=== PATIENT | female | born 1945 | race Caucasian/White ===

== ENCOUNTER 2018-05-11 09:08 | Emergency (ER) | payer MEDICARE ==
[2018-05-11] MEDS ORDERED: PROPARACAINE 0.5% OPHTH DROPS 15 ML BTL LEFT EYE STA (10:09)
[2018-05-11] MEDS ORDERED: TOBRAMYCIN 0.3% OPHTH OINT 3.5 GM TUBE LEFT EYE STA (11:04)
--- NOTE | 2018-05-11 11:05 | ED ---
Eye Problem HPI - General Chief complaint: Eye Problems Stated complaint: eye irritation Time Seen by Provider: 05/11/18 09:44 Source: patient, RN notes reviewed Mode of arrival: ambulatory Limitations: no limitations - History of Present Illness Initial comments: 72-year-old female presents emergency Department chief complaint of left eye irritation. Patient states that she tried to put eyedrops in her eye in the in the dark and states that she accidentally grabbed Lavender essential oil. Patient states she try to rinse her eye right eye feels very irritated. She denies any associated blurred vision. Patient states it's a burning sensation and feels very scratchy. Patient normally has dry eyes. Patient states that she only put in her left eye there was no exposure to her right eye. - Related Data Home Medications Medication Instructions Recorded Confirmed Thera Tears 1 drop BOTH EYES Q4H PRN 05/11/18 05/11/18 Previous Rx's Medication Instructions Recorded Tobra-Dexamet 0.3-0.1% Eye Oin 1 applic LEFT EYE BID #3.5 gm 05/11/18 [Tobradex] Allergies Allergy/AdvReac Type Severity Reaction Status Date / Time codeine Allergy Rash/Hives Verified 05/11/18 09:31 pseudoephedrine Allergy Anaphylaxis Verified 05/11/18 09:31 Review of Systems ROS Statement: Those systems with pertinent positive or pertinent negative responses have been documented in the HPI. ROS Other: All systems not noted in ROS Statement are negative. Past Medical History Past Medical History: Hyperlipidemia Additional Past Medical History / Comment(s): Dry eye, seasonal allergies History of Any Multi-Drug Resistant Organisms: None Reported Past Surgical History: Appendectomy, Section Additional Past Surgical History / Comment(s): Back surgery, power port placed for mary Past Psychological History: No Psychological Hx Reported Smoking Status: Never smoker Past Alcohol Use History: Daily Past Drug Use History: None Reported General Exam Limitations: no limitations General appearance: alert, in no apparent distress Head exam: Present: atraumatic, normocephalic, normal inspection Eye exam: Present: PERRL, EOMI, conjunctival injection (Left, erythema of the inner eyelids noted), other (Flourcesin dye and Wood's lamp were used to evaluate the left eye there is uptake in the 9 o'clock position, patient had full relief of her symptoms with proparacaine). Absent: normal appearance, scleral icterus, periorbital swelling ENT exam: Present: normal exam, normal oropharynx, mucous membranes moist, TM's normal bilaterally, normal external ear exam Neck exam: Present: normal inspection, full ROM. Absent: tenderness, meningismus, lymphadenopathy Respiratory exam: Present: normal lung sounds bilaterally. Absent: respiratory distress, wheezes, rales, rhonchi, stridor Course Vital Signs 05/11/18 09:08 Temperature 97.9 F Pulse Rate 102 H Respiratory 18 Rate Blood Pressure 151/81 O2 Sat by Pulse 98 Oximetry Medical Decision Making - Medical Decision Making 72-year-old female presents for left eye irritation after exposure to essential oil. Patient had Stanislaw lens and 500 mL of fluid were flushed. Patient tolerated well. Patient did have corneal uptake and patient will be discharged on Tobrex eye ointment. Patient will follow-up with ophthalmology. Return parameters were discussed. Disposition Clinical Impression: Corneal abrasion, Chemical exposure of eye Disposition: HOME SELF-CARE Condition: Stable Instructions: Corneal Abrasion (ED), Chemical Eye [place] (ED) Additional Instructions: Please return to the Emergency Department if symptoms worsen or any other concerns. Prescriptions: Tobra-Dexamet 0.3-0.1% Eye Oin [Tobradex] 1 applic LEFT EYE BID #3.5 gm Is patient prescribed a controlled substance at d/c from ED?: No Referrals: Noelle Mckeon MD [STAFF PHYSICIAN] - 1-2 days Time of Disposition: 11:05
[2018-05-11 11:40] VITALS: BP 139/68; PULSE 63; RESP 16; TEMP 98
== END 2018-05-11 11:44 | disposition home or self-care (01) ==
LOC: EC 09:08
DX: S05.02XA Injury of conjunctiva and corneal abrasion without foreign body, left eye, initial encounter (principal); Z77.098 Contact with and (suspected) exposure to other hazardous, chiefly nonmedicinal, chemicals; Z88.5 Allergy status to narcotic agent; Z88.8 Allergy status to other drugs, medicaments and biological substances
CPT/HCPCS: 99283

== ENCOUNTER 2018-08-16 22:41 | Inpatient (IN) | payer MEDICARE ==
[2018-08-16] MEDS ORDERED: SODIUM CHLORIDE 0.9% 1,000 ML IV STA ×2 (23:42)
[2018-08-16] MEDS ORDERED: ONDANSETRON 4 MG/2 ML VIAL IVP STA (23:42)
[2018-08-16] MEDS ORDERED: HYDROmorphone 1 MG/ML 1 ML SYRINGE IVP STA (23:42)
--- NOTE | 2018-08-16 23:59 | ED ---
Abdominal Pain HPI - General Chief Complaint: Abdominal Pain Stated Complaint: rib pain/back pain Time Seen by Provider: 08/16/18 23:20 Source: patient, RN notes reviewed Mode of arrival: ambulatory Limitations: no limitations - History of Present Illness Initial Comments: This is a 73-year-old female history of and history of a bowel obstruction several years ago which was managed nonoperatively who states she had the onset earlier today of abdominal pain she states radiated from her epigastrium around to her back she states she's had nausea states the pain is 8- 1/2/10 severity early prior surgery was a . Pain is sharp mostly again midepigastric and continuous. No dysuria no hematuria no constipation or diarrhea. She states it does feel similar to her prior obstruction. MD Complaint: abdominal pain - Related Data Home Medications Medication Instructions Recorded Confirmed Thera Tears 1 drop BOTH EYES Q4H PRN 05/11/18 08/16/18 Magnesium 200 mg PO DAILY 08/16/18 08/16/18 Naproxen Sodium [Aleve] 440 mg PO Q12HR PRN 08/16/18 08/16/18 Oxymetazoline 0.05% Nasl [place] 2 spray EA NOSTRIL BID 08/16/18 08/16/18 [Afrin 0.05% Nasal [place]] Allergies Allergy/AdvReac Type Severity Reaction Status Date / Time codeine Allergy Rash/Hives Verified 08/16/18 23:20 levofloxacin Allergy Unknown Verified 08/16/18 23:20 pseudoephedrine Allergy Anaphylaxis Verified 08/16/18 23:20 Review of Systems ROS Statement: Those systems with pertinent positive or pertinent negative responses have been documented in the HPI. ROS Other: All systems not noted in ROS Statement are negative. Past Medical History Past Medical History: Cancer, Hyperlipidemia Additional Past Medical History / Comment(s): Dry eye, seasonal allergies, History of Any Multi-Drug Resistant Organisms: None Reported Past Surgical History: Appendectomy, Back Surgery, Section Additional Past Surgical History / Comment(s): Back surgery, power port placed for chemo Past Psychological History: No Psychological Hx Reported Smoking Status: Never smoker Past Alcohol Use History: Daily Past Drug Use History: None Reported General Exam - General Exam Comments Initial Comments: This is a well-developed well-nourished awake alert oriented 3 female Limitations: no limitations General appearance: alert, anxious, in distress Head exam: Present: atraumatic, normocephalic, normal inspection Eye exam: Present: normal appearance, PERRL, EOMI. Absent: scleral icterus, conjunctival injection, periorbital swelling ENT exam: Present: mucous membranes dry Neck exam: Present: normal inspection. Absent: tenderness, meningismus, lymphadenopathy Respiratory exam: Present: normal lung sounds bilaterally. Absent: respiratory distress, wheezes, rales, rhonchi, stridor Cardiovascular Exam: Present: regular rate, normal rhythm, normal heart sounds. Absent: systolic murmur, diastolic murmur, rubs, gallop, clicks GI/Abdominal exam: Present: soft, tenderness (Epigastric and generalized tenderness no guarding rebound masses or bruits), normal bowel sounds. Absent: distended, guarding, rebound, rigid Rectal exam: Present: deferred Extremities exam: Present: normal inspection, full ROM, normal capillary refill. Absent: tenderness, pedal edema, joint swelling, calf tenderness Back exam: Present: normal inspection Neurological exam: Present: alert, oriented X3, CN II-XII intact Psychiatric exam: Present: normal affect, normal mood Skin exam: Present: warm, dry, intact, normal color. Absent: rash Course Vital Signs 08/16/18 22:48 Temperature 97.8 F Pulse Rate 77 Respiratory 18 Rate Blood Pressure 136/67 O2 Sat by Pulse 99 Oximetry - Reevaluation(s) Reevaluation #1: 08/17/18 00:48 Patient is feeling improved. Medical Decision Making - Medical Decision Making I did discuss findings with the patient and family members. Patient will be admitted for IV fluids nasogastric suction CAT scan surgical consultation. - Lab Data Result diagrams: 08/16/18 23:15 08/16/18 23:15 Lab Results 08/16/18 08/16/18 08/16/18 Range/Units 23:15 23:15 23:15 WBC 8.5 (3.8-10.6) k/uL RBC 4.59 (3.80-5.40) m/uL Hgb 14.5 (11.4-16.0) gm/dL Hct 43.3 (34.0-46.0) % MCV 94.4 (80.0-100.0) fL MCH 31.6 (25.0-35.0) pg MCHC 33.5 (31.0-37.0) g/dL RDW 12.9 (11.5-15.5) % Plt Count 241 (150-450) k/uL Neutrophils % 65 % Lymphocytes % 20 % Monocytes % 7 % Eosinophils % 5 % Basophils % 1 % Neutrophils # 5.5 (1.3-7.7) k/uL Lymphocytes # 1.7 (1.0-4.8) k/uL Monocytes # 0.6 (0-1.0) k/uL Eosinophils # 0.5 (0-0.7) k/uL Basophils # 0.1 (0-0.2) k/uL Sodium 140 (137-145) mmol/L Potassium 4.9 (3.5-5.1) mmol/L Chloride 103 (98-107) mmol/L Carbon Dioxide 27 (22-30) mmol/L Anion Gap 10 mmol/L BUN 28 H (7-17) mg/dL Creatinine 0.89 (0.52-1.04) mg/dL Est GFR (CKD-EPI)AfAm 74 (>60 ml/min/1.73 sqM) Est GFR (CKD-EPI)NonAf 65 (>60 ml/min/1.73 sqM) Glucose 107 H (74-99) mg/dL Plasma Lactic Acid Edvin (0.7-2.0) mmol/L Calcium 10.2 (8.4-10.2) mg/dL Total Bilirubin 0.5 (0.2-1.3) mg/dL AST 28 (14-36) U/L ALT 28 (9-52) U/L Alkaline Phosphatase 85 (38-126) U/L Total Creatine Kinase 73 (30-135) U/L CK-MB (CK-2) 1.9 (0.0-2.4) ng/mL CK-MB (CK-2) Rel Index 2.6 Troponin I <0.012 (0.000-0.034) ng/mL Total Protein 7.6 (6.3-8.2) g/dL Albumin 4.4 (3.5-5.0) g/dL Amylase 60 (30-110) U/L Lipase 100 (23-300) U/L 08/16/18 Range/Units 23:15 WBC (3.8-10.6) k/uL RBC (3.80-5.40) m/uL Hgb (11.4-16.0) gm/dL Hct (34.0-46.0) % MCV (80.0-100.0) fL MCH (25.0-35.0) pg MCHC (31.0-37.0) g/dL RDW (11.5-15.5) % Plt Count (150-450) k/uL Neutrophils % % Lymphocytes % % Monocytes % % Eosinophils % % Basophils % % Neutrophils # (1.3-7.7) k/uL Lymphocytes # (1.0-4.8) k/uL Monocytes # (0-1.0) k/uL Eosinophils # (0-0.7) k/uL Basophils # (0-0.2) k/uL Sodium (137-145) mmol/L Potassium (3.5-5.1) mmol/L Chloride (98-107) mmol/L Carbon Dioxide (22-30) mmol/L Anion Gap mmol/L BUN (7-17) mg/dL Creatinine (0.52-1.04) mg/dL Est GFR (CKD-EPI)AfAm (>60 ml/min/1.73 sqM) Est GFR (CKD-EPI)NonAf (>60 ml/min/1.73 sqM) Glucose (74-99) mg/dL Plasma Lactic Acid Edvin 0.6 L (0.7-2.0) mmol/L Calcium (8.4-10.2) mg/dL Total Bilirubin (0.2-1.3) mg/dL AST (14-36) U/L ALT (9-52) U/L Alkaline Phosphatase (38-126) U/L Total Creatine Kinase (30-135) U/L CK-MB (CK-2) (0.0-2.4) ng/mL CK-MB (CK-2) Rel Index Troponin I (0.000-0.034) ng/mL Total Protein (6.3-8.2) g/dL Albumin (3.5-5.0) g/dL Amylase (30-110) U/L Lipase (23-300) U/L - EKG Data -: EKG Interpreted by Ga EKG shows normal: sinus rhythm, axis, intervals, QRS complexes, ST-T waves ( Normal sinus rhythm of 70. Interval 134 QRS duration 80 QT since QTC 410/[address]-T wave changes some artifact is present.) Rate: normal - Radiology Data Radiology results: report reviewed (I did review the imaging which appears consistent with an ileus versus a small bowel obstruction.), image reviewed Disposition Clinical Impression: Small bowel obstruction, Abdominal pain Disposition: ADMITTED IP TO THIS [facility] Condition: Stable Referrals: None,Stated [Primary Care Provider] - 1-2 days
[2018-08-17 00:07] LABS: Basophils # (A) 0.1 k/uL (0-0.2); Basophils % (A) 1 %; Eosinophils # (A) 0.5 k/uL (0-0.7); Eosinophils % (A) 5 %; HCT 43.3 % (34.0-46.0); HGB 14.5 gm/dL (11.4-16.0); Lymphocytes # (A) 1.7 k/uL (1.0-4.8); Lymphocytes % (A) 20 %; MCH 31.6 pg (25.0-35.0); MCHC 33.5 g/dL (31.0-37.0); MCV 94.4 fL (80.0-100.0); Mean Platelet Volume 7.6; Monocytes # (A) 0.6 k/uL (0-1.0); Monocytes % (A) 7 %; Neutrophils # (A) 5.5 k/uL (1.3-7.7); Neutrophils % (A) 65 %; Platelet Count 241 k/uL (150-450); RBC 4.59 m/uL (3.80-5.40); RDW 12.9 % (11.5-15.5); WBC 8.5 k/uL (3.8-10.6)
[2018-08-17 00:19] LABS: Albumin 4.4 g/dL (3.5-5.0); Calcium 10.2 mg/dL (8.4-10.2); Potassium 4.9 mmol/L (3.5-5.1); Total Bilirubin 0.5 mg/dL (0.2-1.3); Total Protein 7.6 g/dL (6.3-8.2)
--- NOTE | 2018-08-17 00:19 | XR ---
EXAMINATION TYPE: XR KUB DATE OF EXAM: 08/17/2018 COMPARISON: NONE HISTORY: Abdominal pain TECHNIQUE: 2 views supine FINDINGS: There are some distended loops of fluid-filled small bowel in the mid abdomen. There is no evidence of free air. Fecal pattern is normal. There is lower lumbar spine fusion surgery. There are no pathologic calcifications over the kidneys. IMPRESSION: Distended small bowel in the mid abdomen could relate to ileus or partial obstruction.
[2018-08-17 00:22] LABS: Creatine Kinase 73 U/L (30-135)
[2018-08-17 00:36] LABS: Creatine Kinase MB 1.9 ng/mL (0.0-2.4); Troponin I <0.012 ng/mL (0.000-0.034)
[2018-08-17] MEDS ORDERED: NALOXONE 0.4 MG/ML 1 ML VIAL IV PRN (00:50)
[2018-08-17] MEDS ORDERED: HYDROmorphone 1 MG/ML 1 ML SYRINGE IVP PRN (00:50)
[2018-08-17] MEDS ORDERED: ONDANSETRON 4 MG/2 ML VIAL IVP PRN (00:50)
--- NOTE | 2018-08-17 01:39 | CT ---
EXAMINATION TYPE: CT abdomen pelvis wo/w con DATE OF EXAM: 08/17/2018 COMPARISON: None HISTORY: No prior, abd pain today, hx of obstruction in the past CT DLP: 1451.30 mGycm Automated exposure control for dose reduction was used. TECHNIQUE: Helical acquisition of images was performed from the lung bases through the pelvis. CONTRAST: Performed without Oral Contrast and with IV Contrast, patient injected with 100 mL of Isovue 300. FINDINGS: There is subsegmental atelectasis at the right posterior lung base. There is no pleural effusion. Hea rt is slightly enlarged. There is no pericardial effusion. There is a 2 cm cyst left lobe of the live r. There is 4 cm cyst posterior right lobe of the liver. Gallbladder appears normal. Spleen appears n ormal. There is no pancreatic mass. Stomach is somewhat dilated with fluid. There are multiple distended loops of small bowel in the mid abdomen. There are multiple fluid levels . Distal small bowel is not dilated. I see no intestinal wall thickening. There is no adrenal mass. Kidneys have normal size and contour. There is normal contrast opacificatio n of the kidneys. There is no hydronephrosis. There is multilevel posterior fusion surgery in the lum bar spine at levels from L4 to S1. There is no lumbar compression fracture. There is no evidence of b jakob destructive process. Bladder distends smoothly. There is no free fluid in the pelvis. There is no retroperitoneal adenopat hy. There is no mesenteric adenopathy. There is no sign of a thickened appendix. Small bowel is dilat ed to 3.3 cm. IMPRESSION: SUBSEGMENTAL ATELECTASIS AT THE RIGHT LUNG BASE. MULTIPLE HEPATIC CYSTS. DILATED STOMACH AND PROXIMAL SMALL BOWEL CONSISTENT WITH A MECHANICAL MID SMALL BOWEL OBSTRUCTION. TH E TRANSITION POINT IS NOT IDENTIFIED. NO HERNIA.
[2018-08-17] MEDS ORDERED: LIDOCAINE URO-JET JELLY 2% 5 ML KIT URETHRAL ONE (01:40)
[2018-08-17] MEDS ORDERED: LORazepam 2 MG/ML INJ IV STA (01:40)
--- NOTE | 2018-08-17 02:28 | XR ---
EXAMINATION TYPE: XR KUB portable DATE OF EXAM: 08/17/2018 COMPARISON: Yesterday HISTORY: NG tube placement TECHNIQUE: Single view upright FINDINGS: There is an NG tube with the tip probably in the gastric fundus. There is no sign of free air. IMPRESSION: Nasogastric tube appears in good position.
[2018-08-17] MEDS: 0.9% NACL WITH KCL 20 MEQ/L 1,000 ML IV SCH ×2 (03:41→08:01)
[2018-08-17 07:12] LABS: Appearance,Urine Clear (Clear); Bilirubin,Urine Negative (Negative); Blood,Urine Negative (Negative); Color,Urine Light Yellow; Glucose,Urine (UA) Negative (Negative); Ketones,Urine Negative (Negative); Leukocyte Esterase,Urine Negative (Negative); Nitrite,Urine Negative (Negative); Protein,Urine Negative (Negative); Specific Gravity,Urine 1.037 (1.001-1.035); Urobilinogen,Urine <2.0 mg/dL (<2.0)
[2018-08-17] MEDS: OXYMETAZOLINE 0.05% NASL SPRAY 1 SPRAY BOTTLE EA NOSTRIL SCH ×2 (08:22→19:40)
[2018-08-17] MEDS: PANTOPRAZOLE 40 MG/10 ML VIAL IV SCH ×2 (08:22→19:31)
[2018-08-17 09:16] LABS: ALT 22 U/L (9-52); AST 21 U/L (14-36); Albumin 3.5 g/dL (3.5-5.0); Alkaline Phosphatase 66 U/L (38-126); Anion Gap 6 mmol/L; Blood Urea Nitrogen 21 mg/dL (7-17); Calcium 8.9 mg/dL (8.4-10.2); Carbon Dioxide 24 mmol/L (22-30); Chloride 108 mmol/L (98-107); Glucose 110 mg/dL (74-99); Potassium 4.7 mmol/L (3.5-5.1); Sodium 138 mmol/L (137-145); Total Bilirubin 0.4 mg/dL (0.2-1.3); Total Protein 6.2 g/dL (6.3-8.2)
[2018-08-17 09:31] LABS: Basophils % (A) 0 %; Eosinophils # (A) 0.1 k/uL (0-0.7); Eosinophils % (A) 1 %; HCT 39.3 % (34.0-46.0); HGB 12.8 gm/dL (11.4-16.0); Lymphocytes # (A) 0.7 k/uL (1.0-4.8); Lymphocytes % (A) 10 %; MCH 31.2 pg (25.0-35.0); MCHC 32.6 g/dL (31.0-37.0); MCV 95.9 fL (80.0-100.0); Mean Platelet Volume 7.3; Monocytes # (A) 0.4 k/uL (0-1.0); Monocytes % (A) 5 %; Neutrophils # (A) 5.8 k/uL (1.3-7.7); Neutrophils % (A) 82 %; Platelet Count 217 k/uL (150-450)
--- NOTE | 2018-08-17 09:50 | P.GSCN ---
History of Present Illness Consult date: 08/17/18 Reason for Consult: Abdominal pain History of present illness: 73-year-old female presented to the emergency room with a chief complaint of developing for the past several days diffuse abdominal pain radiating to the epigastric and to her back. Patient stated the pain became unbearable came into the emergency room on a scale from 1-10 rated it a 9. Patient states she felt nauseated did not vomit. stated her last normal bowel movement was 3 days ago. stated that she normally had a daily bowel movement no blood noted in stool. Currently patient is stating pain medication as effective for pain control. describes the pain as sharp pointed to the mid epigastric area as to the reference point. Patient stated nothing that aggravated nothing that relieved the pain. According to the patient she has had a similar episode several years ago was told she had bowel obstruction. At that time patient reports that was treated nonoperatively. Last colonoscopy done in [place] 3 years ago patient stated was told normal. This been no unintentional weight loss weight gain. Currently has a nasal gastric tube in place. Skin can't amount of drainage noted from the nasal gastric tube abdomen is soft. Hypoactive bowel tones patient reports a nausea sensation. Reportedly did vomit this morning about 15 miles per nursing report. CAT scan obtained with and without contrast of the abdomen pelvis in the emergency room reviewing the report showed dilated stomach and proximal small bowel consistent with a mechanical mid small bowel obstruction. No hernia noted. KUB report distended small bowel in the mid abdomen could relate to partial obstruction or ileus white count on admission 8.5 hemoglobin 14.5 electrolytes within normal limits afebrile Past surgical history appendectomy greater than 20 years ago, back surgery Past medical history seasonal ALLERGIES hyperlipidemia, cancer Review of Systems Essentially unremarkable except as mentioned in the present illness Past Medical History Past Medical History: Cancer, Hyperlipidemia Additional Past Medical History / Comment(s): Dry eye, seasonal allergies,. Non -Hodgkins Lymphoma. Bowel Obstruction History of Any Multi-Drug Resistant Organisms: None Reported Past Surgical History: Appendectomy, Back Surgery, Section Additional Past Surgical History / Comment(s): Back surgery, power port placed for chemo Past Psychological History: No Psychological Hx Reported Smoking Status: Former smoker Past Alcohol Use History: Daily Past Drug Use History: None Reported - Past Family History Father Family Medical History: Cancer Additional Family Medical History / Comment(s): Colon Cancer Mother Family Medical History: Cancer Additional Family Medical History / Comment(s): Breast cancer Medications and Allergies Home Medications Medication Instructions Recorded Confirmed Type Thera Tears 1 drop BOTH EYES Q4H PRN 05/11/18 08/16/18 History Magnesium 200 mg PO DAILY 08/16/18 08/16/18 History Naproxen Sodium [Aleve] 440 mg PO Q12HR PRN 08/16/18 08/16/18 History Oxymetazoline 0.05% Nasl [place] 2 spray EA NOSTRIL BID 08/16/18 08/16/18 History [Afrin 0.05% Nasal [place]] Allergies Allergy/AdvReac Type Severity Reaction Status Date / Time codeine Allergy Rash/Hives Verified 08/16/18 23:20 levofloxacin Allergy Unknown Verified 08/16/18 23:20 pseudoephedrine Allergy Anaphylaxis Verified 08/16/18 23:20 Surgical - Exam Vital Signs Temp Pulse Resp BP Pulse Ox 97.8 F 77 18 136/67 99 08/16/18 22:48 08/16/18 22:48 08/16/18 22:48 08/16/18 22:48 08/16/18 22:48 GENERAL APPEARANCE: 73-year-old female patient resting in bed with a nasogastric tube in place is alert, oriented 3 appears in no acute distress VITAL SIGNS: Reviewed HEENT: Head is normocephalic and atraumatic. Pupils are equal and reactive. The nares are patent. Oropharynx is clear without lesions. NECK: Supple without lymphadenopathy. Traches midline. HEART: S1, S2. Regular rate and rhythm. Denying chest pain LUNGS: No crackles or wheezes are heard. Adequate air movement bilaterally on room air ABDOMEN: Soft, nasal gastric tube to suction scant amount of drainage noted in the canister few hypoactive bowel tones no stool reportedly vomited once this morning small amount soft mild tenderness to the epigastric area nondistended No peritoneal signs. No palpable organomegaly or masses. Currently patient is stating the abdominal pain has resolved EXTREMITIES: Normal skin color and turgor. No cyanosis, rash, ulceration, clubbing or edema. Radial pedal pulses are 2/4 bilaterally. NEUROLOGICAL: No focal deficits. Strength and sensation are grossly intact. Results - Labs 08/17/18 08:53 08/17/18 08:53 Abnormal Lab Results - Last 24 Hours (Table) 08/16/18 08/16/18 08/17/18 Range/Units 23:15 23:15 06:45 Chloride (98-107) mmol/L BUN 28 H (7-17) mg/dL Glucose 107 H (74-99) mg/dL Plasma Lactic Acid Edvin 0.6 L (0.7-2.0) mmol/L Total Protein (6.3-8.2) g/dL Ur Specific [place] 1.037 H (1.001-1.035) 08/17/18 Range/Units 08:53 Chloride 108 H (98-107) mmol/L BUN 21 H (7-17) mg/dL Glucose 110 H (74-99) mg/dL Plasma Lactic Acid Edvin (0.7-2.0) mmol/L Total Protein 6.2 L (6.3-8.2) g/dL Ur Specific [place] (1.001-1.035) Diabetes panel 08/16/18 08/17/18 Range/Units 23:15 08:53 Sodium 140 138 (137-145) mmol/L Potassium 4.9 4.7 (3.5-5.1) mmol/L Chloride 103 108 H (98-107) mmol/L Carbon Dioxide 27 24 (22-30) mmol/L BUN 28 H 21 H (7-17) mg/dL Creatinine 0.89 0.75 (0.52-1.04) mg/dL Glucose 107 H 110 H (74-99) mg/dL Calcium 10.2 8.9 (8.4-10.2) mg/dL AST 28 21 (14-36) U/L ALT 28 22 (9-52) U/L Alkaline Phosphatase 85 66 (38-126) U/L Total Protein 7.6 6.2 L (6.3-8.2) g/dL Albumin 4.4 3.5 (3.5-5.0) g/dL Calcium panel 08/16/18 08/17/18 Range/Units 23:15 08:53 Calcium 10.2 8.9 (8.4-10.2) mg/dL Albumin 4.4 3.5 (3.5-5.0) g/dL Pituitary panel 08/16/18 08/17/18 Range/Units 23:15 08:53 Sodium 140 138 (137-145) mmol/L Potassium 4.9 4.7 (3.5-5.1) mmol/L Chloride 103 108 H (98-107) mmol/L Carbon Dioxide 27 24 (22-30) mmol/L BUN 28 H 21 H (7-17) mg/dL Creatinine 0.89 0.75 (0.52-1.04) mg/dL Glucose 107 H 110 H (74-99) mg/dL Calcium 10.2 8.9 (8.4-10.2) mg/dL Adrenal panel 08/16/18 08/17/18 Range/Units 23:15 08:53 Sodium 140 138 (137-145) mmol/L Potassium 4.9 4.7 (3.5-5.1) mmol/L Chloride 103 108 H (98-107) mmol/L Carbon Dioxide 27 24 (22-30) mmol/L BUN 28 H 21 H (7-17) mg/dL Creatinine 0.89 0.75 (0.52-1.04) mg/dL Glucose 107 H 110 H (74-99) mg/dL Calcium 10.2 8.9 (8.4-10.2) mg/dL Total Bilirubin 0.5 0.4 (0.2-1.3) mg/dL AST 28 21 (14-36) U/L ALT 28 22 (9-52) U/L Alkaline Phosphatase 85 66 (38-126) U/L Total Protein 7.6 6.2 L (6.3-8.2) g/dL Albumin 4.4 3.5 (3.5-5.0) g/dL Assessment and Plan Assessment: Impression Present on admission mid epigastric abdominal pain radiating to the back with a nausea sensation suspect due to small bowel obstruction CAT scan abdomen and pelvis in the emergency room report indicate dilated stomach consistent with mechanical mid small bowel obstruction no hernia History of a prior bowel obstruction treated conservatively nonoperative Colonoscopy 3 years prior per patient report normal Repeat KUB show no evidence of free air Plan Discussed with Dr. sharif will do computed tomography scan abdomen and pelvis with oral contrast only follow up on results Keep nothing by mouth except ice chips Antiemetics as ordered Pain control GI and DVT prophylaxis Further surgical recommendations pending clinical course Will follow with you Keep nasal gastric tube in place Surgical consultation dictated for Dr. sharif The above impression and plan of care have been discussed and directed by signing physician. Dayanara Morley nurse practitioner acting as scribe for signing physician.
--- NOTE | 2018-08-17 10:44 | P.HPIM ---
History of Present Illness This is a pleasant 73 years old female with past medical history of hyperlipidemia, non-Hodgkin lymphoma in [place], back surgery and history of bowel obstruction. Who presents because of abdominal pain of one-day duration. Patient states that pain is in the epigastric area that turns around to the back which she says is pretty severe about 8-9/10 in severity she describes the pain as colicky and at times sharp that comes and goes. Associated with nausea and she vomited twice before she comes to the hospital. She has little bowel movement that day and she is not passing flatus. Patient had CAT scan of the abdomen in the emergency room which showed possible small bowel obstruction.Patient has been evaluated by the surgical team already, no surgical intervention is indicated currently. NG tube is in place and is clamped currently. Patient is already on IV fluids and pain medication. Review of Systems CONSTITUTIONAL: No fever, no malaise, no fatigue. HEENT: No recent visual problems or hearing problems. Denied any sore throat. CARDIOVASCULAR: No orthopnea, PND, no palpitations, no syncope. PULMONARY: No shortness of breath, no cough, no hemoptysis. GASTROINTESTINAL: No diarrhea, NEUROLOGICAL: No headaches, no weakness, no numbness. HEMATOLOGICAL: Denies any bleeding or petechiae. GENITOURINARY: Denies any burning micturition, frequency, or urgency. MUSCULOSKELETAL/RHEUMATOLOGICAL: Denies any joint pain, swelling, or any muscle pain. ENDOCRINE: Denies any polyuria or polydipsia. Past Medical History Past Medical History: Cancer, Hyperlipidemia Additional Past Medical History / Comment(s): Dry eye, seasonal allergies,. Non -Hodgkins Lymphoma. Bowel Obstruction History of Any Multi-Drug Resistant Organisms: None Reported Past Surgical History: Appendectomy, Back Surgery, Section Additional Past Surgical History / Comment(s): Back surgery, power port placed for chemo Past Psychological History: No Psychological Hx Reported Smoking Status: Former smoker Past Alcohol Use History: Daily Past Drug Use History: None Reported - Past Family History Father Family Medical History: Cancer Additional Family Medical History / Comment(s): Colon Cancer Mother Family Medical History: Cancer Additional Family Medical History / Comment(s): Breast cancer Medications and Allergies Home Medications Medication Instructions Recorded Confirmed Type Thera Tears 1 drop BOTH EYES Q4H PRN 05/11/18 08/16/18 History Magnesium 200 mg PO DAILY 08/16/18 08/16/18 History Naproxen Sodium [Aleve] 440 mg PO Q12HR PRN 08/16/18 08/16/18 History Oxymetazoline 0.05% Nasl [place] 2 spray EA NOSTRIL BID 08/16/18 08/16/18 History [Afrin 0.05% Nasal [place]] Allergies Allergy/AdvReac Type Severity Reaction Status Date / Time codeine Allergy Rash/Hives Verified 08/16/18 23:20 levofloxacin Allergy Unknown Verified 08/16/18 23:20 pseudoephedrine Allergy Anaphylaxis Verified 08/16/18 23:20 Physical Exam Vitals: Vital Signs Temp Pulse Pulse Resp BP BP Pulse Ox 08/17/18 07:32 98.6 F 89 18 125/77 94 L 08/17/18 02:33 98.4 F 80 16 106/68 93 L 08/17/18 02:05 97.9 F 81 18 131/65 96 08/17/18 00:50 70 18 137/73 98 08/16/18 22:48 97.8 F 77 18 136/67 99 Intake and Output 08/16/18 08/17/18 08/17/18 22:59 06:59 14:59 Intake Total 500 Output Total 0 860 Balance 500 -860 Intake: Intake, IV Titration 500 Amount 0.9% NaCl with KCl 20 Meq 500 /l 1,000 ml @ 125 mls/hr IV .Q8H [facility] Rx#:[id number] Output: Gastric Drainage 0 Urine 800 Emesis 60 Other: # Voids 0 1 # Bowel Movements 0 Weight 81.647 kg GENERAL: The patient is alert and oriented x3, not in any acute distress. Well developed, well nourished. HEENT: Pupils are round and equally reacting to light. EOMI. No scleral icterus. No conjunctival pallor. Normocephalic, atraumatic. No pharyngeal erythema. No thyromegaly. CARDIOVASCULAR: S1 and S2 present. No murmurs, rubs, or gallops. PULMONARY: Chest is clear to auscultation, no wheezing or crackles. -ABDOMEN: Soft, epigastric tenderness, bone tenderness, nondistended, normoactive bowel sounds. No palpable organomegaly. MUSCULOSKELETAL: No joint swelling or deformity. EXTREMITIES: No cyanosis, clubbing, or pedal edema. NEUROLOGICAL: Gross neurological examination did not reveal any focal deficits. SKIN: No rashes. Results CBC & Chem 7: 08/17/18 08:53 08/17/18 08:53 Labs: Abnormal Lab Results - Last 24 Hours (Table) 08/16/18 08/16/18 08/17/18 Range/Units 23:15 23:15 06:45 Lymphocytes # (1.0-4.8) k/uL Chloride (98-107) mmol/L BUN 28 H (7-17) mg/dL Glucose 107 H (74-99) mg/dL Plasma Lactic Acid Edvin 0.6 L (0.7-2.0) mmol/L Total Protein (6.3-8.2) g/dL Ur Specific [place] 1.037 H (1.001-1.035) 08/17/18 08/17/18 Range/Units 08:53 08:53 Lymphocytes # 0.7 L (1.0-4.8) k/uL Chloride 108 H (98-107) mmol/L BUN 21 H (7-17) mg/dL Glucose 110 H (74-99) mg/dL Plasma Lactic Acid Edvin (0.7-2.0) mmol/L Total Protein 6.2 L (6.3-8.2) g/dL Ur Specific Homer (1.001-1.035) Thrombosis Risk Factor Assmnt - Choose All That Apply Any of the Below Risk Factors Present?: Yes Each Factor Represents 1 point: Obesity (BMI >25) Other Risk Factors: Yes Each Risk Factor Represents 2 Points: Age 61-74 years Thrombosis Risk Factor Assessment Total Risk Factor Score: 3 Thrombosis Risk Factor Assessment Level: Moderate Risk Assessment and Plan Assessment: Small bowel obstruction, mechanical Recurrent nausea and vomiting, with dehydration secondary to above History of hyperlipidemia History of non-Hodgkin lymphoma, not active tissue Plan: This is a pleasant 73 years old female presents because of small bowel obstruction. Patient has been evaluated by surgical team. Continue with conservative management now in the form of NG tube which is is in place, pain management and IV fluids. And keep monitoring. Including vitals and labs. DVT and GI prophylaxis. Further recommendations based on the clinical course of the patient DVT prophylaxis: Heparin GI prophylaxis: Protonix Prognosis is guarded
[2018-08-17] MEDS: SODIUM CHLORIDE 0.9% 1,000 ML IV SCH ×2 (10:54→19:43)
[2018-08-17] MEDS ORDERED: IOPAMIDOL-300 CONTRAST 30 ML VIAL (ORAL USE) PO PRN (11:16)
[2018-08-17] MEDS: HYDROmorphone 1 MG/ML 1 ML SYRINGE IVP PRN ×2 (11:21→16:07)
[2018-08-17] MEDS: ONDANSETRON 4 MG/2 ML VIAL IVP PRN ×3 (11:21→19:30)
[2018-08-17] MEDS: IOPAMIDOL-300 CONTRAST 30 ML VIAL (ORAL USE) PO PRN ×2 (12:01→12:59)
[2018-08-17 15:05] VITALS: RESP 16
[2018-08-17] MEDS: HEPARIN SODIUM,PORCINE 5,000 UNIT/ML 1 ML VIAL SQ SCH (16:10)
--- NOTE | 2018-08-17 16:50 | CT ---
EXAMINATION TYPE: CT abdomen pelvis wo con DATE OF EXAM: 08/17/2018 COMPARISON: Today HISTORY: abdominal pain, nausea, vomiting. CT DLP: 842 mGycm Automated exposure control for dose reduction was used. TECHNIQUE: Helical acquisition of images was performed from the lung bases through the pelvis. FINDINGS: There is subsegmental atelectasis at the lung bases. There is no pericardial effusion. There are cyst s in the liver that measure up to 4.5 cm. Bile ducts are not dilated. There is nasogastric tube. Sple en appears normal. Pancreas appears normal. Gallbladder appears normal. There is no adrenal mass. There is high attenuation in the pelvis of both kidneys related to apparent IV contrast. There is contrast in the urinary bladder. There is no retroperitoneal adenopathy. There is no mesenteric adenopathy. I see no intestinal wall thickening. There are no dilated loops. The stomach is decompressed. Bladder distends smoothly. Uterus is anteverted. There is no free fluid in the pelvis. There is fusio n surgery from L4 to S1. There is no sign of free air. There is no inguinal adenopathy or hernia. Abd ominal soft tissues are unremarkable. There is no ascites. IMPRESSION: THE NASOGASTRIC TUBE IS IN GOOD POSITION. THERE IS DECOMPRESSION OF THE STOMACH AND THE DILATED SMALL BOWEL COMPARED TO EXAM EARLIER THIS MORNING.
[2018-08-17] MEDS ORDERED: MORPHINE SULFATE 2 MG/ML SYRINGE IVP PRN (19:44)
[2018-08-18] MEDS: ONDANSETRON 4 MG/2 ML VIAL IVP PRN (00:06)
[2018-08-18] MEDS: HEPARIN SODIUM,PORCINE 5,000 UNIT/ML 1 ML VIAL SQ SCH ×2 (00:06→09:31)
[2018-08-18 08:04] LABS: Basophils % (A) 0 %; Eosinophils # (A) 0.2 k/uL (0-0.7); Eosinophils % (A) 4 %; HCT 36.4 % (34.0-46.0); HGB 12.6 gm/dL (11.4-16.0); Lymphocytes # (A) 1.5 k/uL (1.0-4.8); Lymphocytes % (A) 28 %; MCH 32.4 pg (25.0-35.0); MCHC 34.6 g/dL (31.0-37.0); MCV 93.6 fL (80.0-100.0); Mean Platelet Volume 7.8; Monocytes # (A) 0.4 k/uL (0-1.0); Monocytes % (A) 7 %; Neutrophils # (A) 3.1 k/uL (1.3-7.7); Neutrophils % (A) 59 %; Platelet Count 192 k/uL (150-450); RBC 3.89 m/uL (3.80-5.40); RDW 12.8 % (11.5-15.5); WBC 5.2 k/uL (3.8-10.6)
[2018-08-18 08:19] LABS: Calcium 8.5 mg/dL (8.4-10.2); Potassium 4.5 mmol/L (3.5-5.1)
--- NOTE | 2018-08-18 09:27 | P.PN ---
Subjective Progress Note Date: 08/18/18 73-year-old female seen at the bedside patient had been up ambulating in the hallway [facility] passing gas no nausea no vomiting tolerating clear liquid diet active bowel tones states there is a significant improvement in the abdominal pain denying abdominal pain when questioning " white count 5.2 afebrile CAT scan of the abdomen pelvis done yesterday reviewed the report nasal gastric tube in good position there is decompression of the stomach and the dilated small bowel compared to exam earlier in the morning no free air Objective - Vital Signs Vital signs: Vital Signs Temp 98.3 F 08/18/18 08:30 Pulse 68 08/18/18 08:30 Resp 16 08/18/18 08:30 BP 118/70 08/18/18 08:30 Pulse Ox 96 08/18/18 08:30 Intake & Output 08/17/18 08/18/18 08/18/18 18:59 06:59 18:59 Intake Total 120 1270 600 Output Total 1030 10 Balance -910 1260 600 Intake: Intake, IV Titration 900 Amount Sodium Chloride 0.9% 1, 900 000 ml @ 100 mls/hr IV . Q10H [facility] Rx#:[id number] Oral 120 370 600 Output: Gastric Drainage 10 Urine 800 Emesis 230 Other: Voiding Method Toilet # Voids 1 2 # Bowel Movements 0 - Exam Physical exam Pleasant 73-year-old female had been up ambulating in hallway states passing gas no nausea no vomiting Lungs clear on room air Heart S1-S2 audible regular Abdomen soft not distended nontender active bowel tones tolerating clear liquid diet with no nausea no vomiting states no stool Extremity no edema - Labs CBC & Chem 7: 08/18/18 07:12 08/18/18 07:12 Labs: Abnormal Lab Results - Last 24 Hours (Table) 08/17/18 08/18/18 Range/Units 08:53 07:12 Lymphocytes # 0.7 L (1.0-4.8) k/uL Chloride 112 H (98-107) mmol/L Microbiology - Last 24 Hours (Table) 08/16/18 23:55 Blood Culture - Preliminary Blood No Growth after 24 hours Assessment and Plan Assessment: Impression Present on admission mid epigastric abdominal pain radiating to the back with a nausea sensation suspect due to small bowel obstruction CAT scan abdomen and pelvis in the emergency room report indicate dilated stomach consistent with mechanical mid small bowel obstruction no hernia History of a prior bowel obstruction treated conservatively nonoperative Colonoscopy 3 years prior per patient report normal Repeat KUB show no evidence of free air Plan Clear liquid diet Antiemetics as ordered Pain control GI and DVT prophylaxis Further surgical recommendations pending clinical course Will follow with you The above impression and plan of care have been discussed and directed by signing physician. Dayanara Morley nurse practitioner acting as scribe for signing physician.
[2018-08-18] MEDS: OXYMETAZOLINE 0.05% NASL SPRAY 1 SPRAY BOTTLE EA NOSTRIL SCH (09:30)
[2018-08-18] MEDS: PANTOPRAZOLE 40 MG/10 ML VIAL IV SCH (09:31)
[2018-08-18 14:08] VITALS: BP 118/71; PULSE 90; TEMP 98
--- NOTE | 2018-08-18 18:03 | P.DS ---
Providers Date of admission: 08/17/18 00:49 Attending physician: Ced Nguyen Consults: 08/17/18 00:52 Consult Physician Routine Consulting Provider: Reece Castellon Consult Reason/Comments: Abdominal pain, small bowel obstruction Do you want consulting provider notified?: Yes, Notify in am Primary care physician: Stated None Hospital Course: This is a pleasant 73 years old female with past medical history of hyperlipidemia, non-Hodgkin lymphoma in [place], back surgery and history of bowel obstruction. Who presents because of abdominal pain of one-day duration. Patient states that pain is in the epigastric area that turns around to the back which she says is pretty severe about 8-9/10 in severity she describes the pain as colicky and at times sharp that comes and goes. Associated with nausea and she vomited twice before she comes to the hospital. She has little bowel movement that day and she is not passing flatus. Patient had CAT scan of the abdomen in the emergency room which showed possible small bowel obstruction.Patient has been evaluated by the surgical team already, no surgical intervention is indicated pt has been treated conservatively with NG tube and IV fluids and pain medication. Patient showed interval improvement and on the day of discharge patient abdominal pain is completely resolved no more nausea or vomiting. She is passing flatus patient tolerated clear liquid diet. Repeat labs from today shows unremarkable CBC and BMP. Shows no growth for 24 hours reactive repeat CAT scan of the abdomen shows inflated stomach and bowel loops. Patient was walking in the hallway Patient has been evaluated by the surgical team earlier today and they cleared her for discharge to follow up in the office in 2 weeks. Appointment has been made with the surgical office and she agrees with it. However there is incidental findings on the CAT scan showing cysts in the liver the largest about 4.5 cm patient has been informed and asked to follow-up with her doctor as outpt, appointment is made with the GI clinic and Dr. Cheema upon patient request and she agreed with it. patient she doesn't remember the name of her PCP but she told me she has his current at home and that she will call and make an appointment in 1 week as we instructed her. Management plan of her problems was discussed with patient in details and she verbalized understanding and acceptance Patient was found stable for discharge but she needs follow-up as an outpatient which she agrees with. Patient agreed to all appointments and the timing physical exam Gen.: Patient alert awake and oriented X 3, NOT IN DISTRESS CVS: s1-s2, RRR, no murmur CHEST:bilateral CTA, no wheezing or crepitation Abdomen: Soft, no tenderness, no distention, positive bowel sounds Extremities: No leg edema or induration Time spent more than 35 minutes Patient Condition at Discharge: Stable Plan - Discharge Summary Discharge Rx Participant: Yes New Discharge Prescriptions: Continue Thera Tears 1 drop BOTH EYES Q4H PRN PRN Reason: DRY EYES Oxymetazoline 0.05% Nasl [place] [Afrin 0.05% Nasal [place]] 2 spray EA NOSTRIL BID Magnesium 200 mg PO DAILY Discontinued Naproxen Sodium [Aleve] 440 mg PO Q12HR PRN PRN Reason: Pain Discharge Medication List Thera Tears 1 drop BOTH EYES Q4H PRN 05/11/18 [History] Magnesium 200 mg PO DAILY 08/16/18 [History] Oxymetazoline 0.05% Nasl [place] [Afrin 0.05% Nasal [place]] 2 spray EA NOSTRIL BID 08/16/18 [History] Follow up Appointment(s)/Referral(s): Renita Cheema MD [STAFF PHYSICIAN] - 08/29/18 3:45 pm (liver cysts ) None,Stated [Primary Care Provider] - 1 Week (Patient could not remember PCP. Requested that she make her own appointment.) Reece Castellon MD [STAFF PHYSICIAN] - 08/31/18 1:40 pm Patient Instructions/Handouts: Bowel Obstruction (DC) Activity/Diet/Wound Care/Special Instructions: diet: resume your previous diet activity : limited till you see your doctor Discharge Disposition: HOME SELF-CARE
== END 2018-08-18 16:22 | disposition home or self-care (01) | DRG 390 ==
LOC: EC 22:41 → 3SUR 08-17 00:49
PROVIDERS: ADMIT Hospitalist; ATTEND Hospitalist
DX: K56.609 Unspecified intestinal obstruction, unspecified as to partial versus complete obstruction (principal); E78.5 Hyperlipidemia, unspecified; E86.0 Dehydration; K76.89 Other specified diseases of liver; Z80.0 Family history of malignant neoplasm of digestive organs; Z80.3 Family history of malignant neoplasm of breast; Z85.72 Personal history of non-Hodgkin lymphomas; Z87.891 Personal history of nicotine dependence; Z90.49 Acquired absence of other specified parts of digestive tract; Z98.891 History of uterine scar from previous surgery; Z88.1 Allergy status to other antibiotic agents; Z88.5 Allergy status to narcotic agent; Z88.8 Allergy status to other drugs, medicaments and biological substances; Z92.21 Personal history of antineoplastic chemotherapy; Z79.899 Other long term (current) drug therapy; J30.2 Other seasonal allergic rhinitis
CPT/HCPCS: 36415; 74018; 74176; 74178; 80048; 80053; 81003; 82150; 82550; 82553; 83605; 83690; 84484; 85025; 87040; 93005; 96361; 96374; 96375; 99285

== ENCOUNTER → 2018-09-06 | Day surgery (SDC) | payer MEDICARE ==
[2018-09-05 08:27] VITALS: BMI 29.0
[~2018-09-06] MED LIST: GLYCOPYRROLATE 0.2 MG/ML 2 ML VIAL ONE; LACTATED RINGERS 1,000 ML IV SCH; LIDOCAINE 1% 20 ML VIAL (10MG/ML) FOR IV START INTRADERMA PRN; LIDOCAINE 1% INJ 10MG/ML (20 ML MDV) ONE; PROPOFOL 10 MG/ML 20 ML VIAL IV ONE
[2018-09-06 11:01] VITALS: TEMP 98.1
--- NOTE | 2018-09-06 11:32 | P.GSHP ---
History of Present Illness H&P Date: 09/06/18 Chief Complaint: Peptic ulcer disease This a 73-year-old female with complaints of some epigastric pain. Patient's. History of peptic ulcer disease. She presents today for EGD. Past Medical History Past Medical History: Cancer, Hyperlipidemia Additional Past Medical History / Comment(s): Dry eye, seasonal allergies,. Non -Hodgkins Lymphoma. Bowel Obstruction -08/17-08/18/18 History of Any Multi-Drug Resistant Organisms: None Reported Past Surgical History: Appendectomy, Back Surgery, Section Additional Past Surgical History / Comment(s): Back surgery, power port placed for chemo-REMOVED Past Anesthesia/Blood Transfusion Reactions: Postoperative Nausea & Vomiting ( PONV) Smoking Status: Former smoker - Past Family History Father Family Medical History: Cancer Additional Family Medical History / Comment(s): Colon Cancer Mother Family Medical History: Cancer Additional Family Medical History / Comment(s): Breast cancer Medications and Allergies Home Medications Medication Instructions Recorded Confirmed Type Oxymetazoline HCl [Afrin 0.05%] 1 spray EA NOSTRIL DAILY 09/05/18 09/06/18 History Artificial Tears-Hypromellose 1 drop BOTH EYES DAILY 09/06/18 09/06/18 History [Artificial Tear Drops] Allergies Allergy/AdvReac Type Severity Reaction Status Date / Time codeine Allergy Rash/Hives Verified 09/06/18 10:49 hydromorphone [From Dilaudid] Allergy Nausea & Verified 09/06/18 10:49 Vomiting levofloxacin Allergy Nausea & Verified 09/06/18 10:49 Vomiting pseudoephedrine Allergy Anaphylaxis Verified 09/06/18 10:49 Surgical - Exam Vital Signs Temp Pulse Resp BP Pulse Ox 98.1 F 64 16 130/68 98 09/06/18 10:57 09/06/18 10:57 09/06/18 10:57 09/06/18 10:57 09/06/18 10:57 - General well developed, no distress - Eyes PERRL - ENT normal pinna - Neck no masses - Respiratory normal expansion - Cardiovascular Rhythm: regular - Abdomen Abdomen: soft, non tender Assessment and Plan Assessment: Epigastric pain History of peptic ulcer disease. We'll perform EGD.
--- NOTE | 2018-09-06 11:40 | P.OP ---
Date of Procedure: 09/06/18 Preoperative Diagnosis: Peptic ulcer disease Postoperative Diagnosis: Mild antral gastritis Procedure(s) Performed: EGD Anesthesia: MAC Surgeon: Reece Castellon Pathology: other (Antrum,) Condition: stable Disposition: PACU Description of Procedure: The patient was placed on the endoscopy table in the lateral position. She received IV sedation. The gastroscope placed oropharynx passed in the esophagus and. Scope was then placed through the pylorus. The first and second portion of the duodenum appeared normal. Scope was then brought back the antrum appeared mildly inflamed. A biopsies performed. The scope was then retroflexed the remainder some appeared normal. There is no significant hiatal hernia. The GE junction was at 40 cm the distal esophagus appeared normal. The proximal esophagus. Normal. Scope withdrawn for patient.
[2018-09-06 11:47] VITALS: RESP 18
[2018-09-06 12:13] VITALS: BP 123/62; PULSE 68
== END ==
LOC: ORWHC2ENDO 10:32
PROVIDERS: ATTEND Surgery
DX: K29.50 Unspecified chronic gastritis without bleeding (principal); E78.5 Hyperlipidemia, unspecified; Z85.72 Personal history of non-Hodgkin lymphomas; Z92.21 Personal history of antineoplastic chemotherapy; Z87.891 Personal history of nicotine dependence; Z80.0 Family history of malignant neoplasm of digestive organs; Z80.3 Family history of malignant neoplasm of breast; Z87.19 Personal history of other diseases of the digestive system; Z79.899 Other long term (current) drug therapy; Z88.1 Allergy status to other antibiotic agents; Z88.5 Allergy status to narcotic agent; Z88.8 Allergy status to other drugs, medicaments and biological substances
CPT/HCPCS: 88305; 43239; J2001; J2704

== ENCOUNTER → 2019-02-12 | Outpatient (CLI) | payer MEDICARE ==
--- NOTE | 2019-02-12 11:16 | US ---
EXAMINATION TYPE: US abdomen limited DATE OF EXAM: 02/12/2019 COMPARISON: 04/14/2012 CLINICAL HISTORY: K76.89 Liver cyst. History of liver cysts EXAM MEASUREMENTS: Liver Length: 14.7 cm Gallbladder Wall: 0.3 cm CBD: 0.4 cm Right Kidney: 10.0 x 3.7 x 4.6 cm Pancreas: Tail obscured by overlying bowel gas Liver: multiple cystic areas noted, largest = 3.5 x 3.2 x 4.2cm Gallbladder: no evidence of stones Evidence for sonographic Mg's sign: no CBD: appears wnl Right Kidney: no evidence of hydronephrosis IMPRESSION: Simple appearing hepatic cysts are again noted with the largest measuring 3.5 cm, increas ed in size from the prior of 04/14/2012.
== END | disposition home or self-care (01) ==
LOC: RADUSWWP 10:12
DX: K76.89 Other specified diseases of liver (principal)
CPT/HCPCS: 76705

== ENCOUNTER → 2019-02-13 | Outpatient (CLI) | payer MEDICARE ==
--- NOTE | 2019-02-13 09:23 | NM ---
EXAMINATION TYPE: NM hepatobiliary w CCK DATE OF EXAM: 02/13/2019 COMPARISON: 08/17/2018 and 02/12/2019 HISTORY: Biliary dyskinesia. Abdominal pain, nausea, and vomiting. TECHNIQUE: After the intravenous administration of 5.1 mCi Tc 99m Mebrofenin hepatobiliary scintigrap hy is performed. Immediate images post injection. FINDINGS: There is satisfactory initial accumulation of tracer by the liver. The gallbladder is visualized wit hin 30 minutes. The small bowel activity is noted within 14 minutes. At one hour CCK was administer ed, patient was injected with 1.7 mcg of Kinevac, and gallbladder ejection fraction is calculated at 94 %, abnormally elevated. Therefore there is no scintigraphic evidence of cystic or common bile fermin t obstruction to suggest acute cholecystitis or gallbladder dyskinesia. IMPRESSION: Abnormally elevated gallbladder ejection fraction of 94% compatible with hyperkinesia. No scintigraphic evidence of acute or chronic cholecystitis.
== END | disposition home or self-care (01) ==
LOC: RADNMMAIN 07:01
PROVIDERS: ATTEND Surgery
DX: R93.2 Abnormal findings on diagnostic imaging of liver and biliary tract (principal)
CPT/HCPCS: 78227; A9537; J2805

== ENCOUNTER 2019-02-26 07:03 | Day surgery (SDC) | payer MEDICARE ==
[2019-02-21 15:08] VITALS: BMI 29.0
[~2019-02-26 07:03] MED LIST changes: +DEXAMETHASONE SOD PHOSPHATE 10 MG/ML 1 ML VIAL IV ONE; -GLYCOPYRROLATE 0.2 MG/ML 2 ML VIAL ONE; +HEPARIN SODIUM,PORCINE 5,000 UNIT/ML 1 ML VIAL SQ ONE; -LIDOCAINE 1% 20 ML VIAL (10MG/ML) FOR IV START INTRADERMA PRN; -LIDOCAINE 1% INJ 10MG/ML (20 ML MDV) ONE; +MIDAZOLAM 2 MG/2 ML VIAL IV PRN; +ONDANSETRON 4 MG/2 ML VIAL IVP ONE; -PROPOFOL 10 MG/ML 20 ML VIAL IV ONE; +ceFAZolin IN SWFI 2 GM/20 ML SYRINGE IVP ONE
[2019-02-26] MEDS ORDERED: LIDOCAINE 1% 20 ML VIAL (10MG/ML) FOR IV START INTRADERMA ONE (07:27)
[2019-02-26] MEDS ORDERED: LACTATED RINGERS 1,000 ML IV ONE ×2 (07:28→09:34)
[2019-02-26] MEDS ORDERED: GLYCOPYRROLATE 0.2 MG/ML 2 ML VIAL ONE (07:56)
[2019-02-26] MEDS ORDERED: LIDOCAINE 1% INJ 10MG/ML (20 ML MDV) ONE (07:56)
[2019-02-26] MEDS ORDERED: fentaNYL (PF) 50 MCG/ML 2 ML AMP ONE (07:56)
[2019-02-26] MEDS ORDERED: PHENYLEPHRINE-0.9% NACL SYG 1 MG/10 ML SYRINGE ONE (07:56)
[2019-02-26] MEDS ORDERED: KETOROLAC 30 MG/ML 1 ML VIAL ONE (07:56)
[2019-02-26] MEDS ORDERED: ROCURONIUM BROMIDE 10 MG/ML 10 ML VIAL IV ONE (07:56)
[2019-02-26] MEDS ORDERED: NEOSTIGMINE 1 MG/ML 10 ML VIAL ONE (07:56)
[2019-02-26] MEDS ORDERED: PROPOFOL 10 MG/ML 20 ML VIAL IV ONE (07:56)
--- NOTE | 2019-02-26 08:01 | P.GSHP ---
History of Present Illness H&P Date: 02/26/19 Chief Complaint: Right upper quadrant pain This a 73-year-old female who presents today for laparoscopically stenting. Patient complains were quadrant pain. Her recent HIDA scan shows abnormal elevated ejection fraction. Past Medical History Past Medical History: Cancer, Hyperlipidemia Additional Past Medical History / Comment(s): Dry eye, seasonal allergies,. Non-Hodgkins Lymphoma -last tx 10/03. Bowel Obstruction -08/17-08/18/18. hx back pain- position carefully History of Any Multi-Drug Resistant Organisms: None Reported Past Surgical History: Appendectomy, Back Surgery, Breast Surgery, Section Additional Past Surgical History / Comment(s): Back surgery with rods and pins- L4,L5,S1 fused, power port placed for chemo-REMOVED, marlene breast biopsies Past Anesthesia/Blood Transfusion Reactions: Postoperative Nausea & Vomiting (PONV) Smoking Status: Former smoker - Past Family History Father Family Medical History: Cancer Additional Family Medical History / Comment(s): Colon Cancer Mother Family Medical History: Cancer Additional Family Medical History / Comment(s): Breast cancer Medications and Allergies Home Medications Medication Instructions Recorded Confirmed Type Artificial Tears-Hypromellose 1 drop BOTH EYES DAILY 09/06/18 02/21/19 History [Artificial Tear Drops] Fluticasone Nasal [place] [Flonase 1 spray EA NOSTRIL DAILY PRN 02/21/19 02/21/19 History Nasal [place]] Allergies Allergy/AdvReac Type Severity Reaction Status Date / Time codeine Allergy Rash/Hives Verified 02/21/19 14:55 hydromorphone [From Dilaudid] Allergy Nausea & Verified 02/21/19 14:55 Vomiting levofloxacin Allergy Nausea & Verified 02/21/19 14:55 Vomiting pseudoephedrine Allergy Anaphylaxis Verified 02/21/19 14:55 Surgical - Exam Vital Signs Temp Pulse Resp BP Pulse Ox 97.4 F L 74 18 142/65 99 02/26/19 07:21 02/26/19 07:21 02/26/19 07:21 02/26/19 07:21 02/26/19 07:21 - General well developed, well nourished, no distress - Eyes PERRL - ENT normal pinna - Neck no masses - Respiratory normal expansion - Cardiovascular Rhythm: regular - Abdomen Abdomen: soft, non tender Assessment and Plan Assessment: Right upper quadrant pain Abnormal HIDA scan We'll perform laparoscopic cholecystectomy.
[2019-02-26] MEDS ORDERED: BUPIVACAIN-EPI 0.5%-1:200,000 30 ML VIAL SQ ONE ×2 (08:15→08:22)
--- NOTE | 2019-02-26 08:43 | P.OP ---
Date of Procedure: 02/26/19 Preoperative Diagnosis: Cholecystitis Postoperative Diagnosis: Cholecystitis Procedure(s) Performed: Laparoscopic cholecystectomy Anesthesia: KIANNA Surgeon: Reece Castellon Estimated Blood Loss (ml): 5 Pathology: other (Gallbladder) Condition: stable Disposition: PACU Description of Procedure: The patient was placed on the operating table. The patient received a general endotracheal tube anesthesia. The patients abdomen was prepped and draped in the usual sterile fashion. Through an infraumbilical stab incision, the fascia of the anterior abdominal wall was grasped with a pair of Kochers and then the Veress needle was placed in the peritoneal cavity. Position of the Veress needle was confirmed with positive drop test. The abdomen was then insufflated. After adequate insufflation, the 10 mm trocar was placed in the peritoneal cavity. Following this the laparoscope was placed in the peritoneal cavity. The patient was placed in the head-up, right side up position and then a 5 mm trocar was placed in the right lateral and right subcostal position under direct visualization. A 8 mm trocar was placed in the epigastric position. The gallbladder was grasped in the fundus and infundibulum. Traction on the gallbladder was placed in the lateral and the cephalad positions. The triangle of Calot was visualized.. The cystic duct was bluntly dissected until the union of the cystic duct and common bile duct was seen. The cystic duct was then divided and sealed with the Harmonic scissors. A PDS Endoloop was then placed throughout the cystic duct stump. The cystic artery divided and sealed with the Harmonic scissors. The gallbladder was then removed from the liver bed using Harmonic scissors. The gallbladder was then extracted through the epigastric port site. Operative field was checked for any bleeding spots and Harmonic scissors was used to coagulate the liver bed. The abdomen was irrigated. The trocars were removed. The skin was closed using interrupted 3-0 Vicryl suture. Dermabond dressing were applied. The patient tolerated the procedure well.
[2019-02-26 08:54] VITALS: RESP 16; TEMP 96.8
[2019-02-26] MEDS: fentaNYL (PF) 50 MCG/ML 2 ML AMP IV PRN ×2 (08:58→09:14)
[2019-02-26] MEDS ORDERED: HYDROcodone/APAP 5-325MG 1 EACH TAB PO ONE (10:03)
[2019-02-26 10:09] VITALS: BP 118/65; PULSE 57
== END 2019-02-26 10:57 | disposition home or self-care (01) ==
LOC: OR 07:03
PROVIDERS: ATTEND Surgery
DX: K81.1 Chronic cholecystitis (principal); E78.5 Hyperlipidemia, unspecified; Z85.72 Personal history of non-Hodgkin lymphomas; H04.129 Dry eye syndrome of unspecified lacrimal gland; J30.2 Other seasonal allergic rhinitis; Z98.1 Arthrodesis status; Z87.891 Personal history of nicotine dependence; Z79.899 Other long term (current) drug therapy; Z88.1 Allergy status to other antibiotic agents; Z88.5 Allergy status to narcotic agent; Z88.8 Allergy status to other drugs, medicaments and biological substances
CPT/HCPCS: 88304; 47562; J1644; J1100; J2710; J2405; J2001; J3010; J1885; J2370; J2704; J0690

== ENCOUNTER → 2019-04-10 | Outpatient (CLI) | payer MEDICARE ==
--- NOTE | 2019-04-10 13:59 | BD ---
EXAMINATION TYPE: Axial Bone Density DATE OF EXAM: 04/10/2019 COMPARISON: NONE CLINICAL HISTORY: 73 YR OLD FEMALE....ICD-10 CODE: M89.9 BONE DISORDER Height: 65 Weight: 187 FRAX RISK QUESTIONS: Family History (Parent hip fracture): NO FX 5. Chronic liver disease: CYST ON HER LIVER, BUT LABS ALL NORMAL Rheumatoid Arthritis: YES RISK FACTORS HISTORY OF: Surgery to Spine/Hip(right/left)/Wrist (right/left): FUSION, L4,5 AND S1, RODS AND PINS, 2013 Family History of Osteoporosis: YES, HER MOTHER, NO HIP FX Diet low in dairy products/other sources of calcium: YES, ALLERGIC Postmenopausal woman: YES AT 49 YRS OLD Take estrogen and/or progesterone medications: HRT FOR ABOUT 8 YRS, NONE NOW MEDICATIONS: Prednisone or other steroids: ON AND OFF FOR SYMPTOMS Additional Medications: HX OF CA, CHEMO IN THE PAST, Additional History: HX OF LYMPHOM, LG B CELL, RA EXAM MEASUREMENTS: Bone mineral densitometry was performed using the [employer] System. LUMBAR FUSION....NO LUMBAR SCAN Bone mineral density about the R hip (g/cm2): 1.115 Bone mineral density about the L hip (g/cm2): 1.089 T Score values are as follows: -----R Neck: 1.0 -----L Neck: 1.1 -----R Total: 0.8 -----L Total: 0.6 Bone mineral density FIRST DEXA SCAN AT [facility] FRAX%s: THERE IS A 5.8% CHANCE FOR A MAJOR OSTEOPOROTIC FX AND A 0.2% FOR HIP.....PROBABILITY OF F X IN 10 YRS TIME Bone mineral density about the L Wrist (g/cm2): 0.515 T Score values are as follows: -----Dist. R+U: -2.1 -----Prox. R+U: -1.3 -----Radius total: -2.2 Bone mineral density FIRST DEXA SCAN AT [facility] IMPRESSION: Osteopenia (T Score between -2.5 and -1). There is slightly increased risk of fracture and the patient may be considered for treatment. Re-Screen 2-5 years. NOTE: T-SCORE=SD OF THE YOUNG ADULT MEAN.
--- NOTE | 2019-04-27 13:58 | MM ---
Reason for exam: screening (asymptomatic). Last mammogram was performed 2 years and 3 months ago. History: Patient is postmenopausal and has history of other cancer at age 68. Family history of premenopausal breast cancer in sister and breast cancer in mother. Benign stereotactic core biopsy of the right breast, July 12, 2003. 2 cyst aspirations of the left breast. 2 cyst aspirations of the right breast. Core biopsy of the right breast. Excisional biopsy of the left breast. Excisional biopsy of the right breast. Taking estrogen for 8 years 9 months. Taking progesterone for 8 years 9 months. Physical Findings: A clinical breast exam by your physician is recommended on an annual basis and results should be correlated with mammographic findings. MG 3D Screening Mammo W/Cad Bilateral CC and MLO view(s) were taken. Prior study comparison: December 02, 2011, bilateral digital screening mammo w/CAD. May 22, 2008, bilateral digital screening mammogram. There are scattered fibroglandular densities. Benign appearing calcifictions in the left breast. Post biopsy change bilaterally. ASSESSMENT: Benign, BI-RAD 2 RECOMMENDATION: Routine screening mammogram of both breasts in 1 year.
== END | disposition home or self-care (01) ==
LOC: RADMAMWWP 11:47
PROVIDERS: ATTEND Family Medicine
DX: Z12.31 Encounter for screening mammogram for malignant neoplasm of breast (principal); M89.9 Disorder of bone, unspecified; M85.832 Other specified disorders of bone density and structure, left forearm
CPT/HCPCS: 77063; 77067; 77080

== ENCOUNTER → 2019-07-16 | Outpatient (CLI) | payer MEDICARE ==
--- NOTE | 2019-07-16 15:53 | CT ---
EXAMINATION TYPE: CT sinus wo con DATE OF EXAM: 07/16/2019 COMPARISON: None HISTORY: Vertigo CT DLP: 583.7 mGycm CONTRAST: 0 mL of Isovue 300 The paranasal sinuses are examined in the axial plane at 2 mm thick sections. Reconstructed images i n the coronal plane were obtained. There is dental amalgam scatter artifact The maxillary sinuses are clear. There is been prior uncinectomies and ethmoidectomies. Some minimal mucosal thickening within residual ethmoid airspace is present. The sphenoid sinuses are clear. Th e frontal sinuses are clear. The septum is evaluated. There is septal deviation to the right. There are prior uncinectomies. Prior ethmoidectomies are present. IMPRESSIONS: 1. Postsurgical changes within the paranasal sinuses. Some mild mucosal thickening is within the pos terior ethmoidectomy airspace. No acute sinusitis changes.
--- NOTE | 2019-07-16 17:18 | CT ---
EXAMINATION TYPE: CT iac wo con DATE OF EXAM: 07/16/2019 COMPARISON: None HISTORY: Vertigo CT DLP: 150 mGycm Automated exposure control for dose reduction was used. Axial images 1 mm thick sections. Reconstructed images in the coronal plane. FINDINGS: Cerebellar pontine angles appear unremarkable. Internal auditory canals are normal without expansion or erosion. Semicircular canals are normal. External auditory canals and middle ears are clear. Incus and malleus have normal orientation. The at tics are clear. Cochlea is unremarkable. Note is made of prior paranasal sinus surgery. IMPRESSION: 1. NORMAL INTERNAL AUDITORY CANAL STUDY.
== END ==
LOC: RADCTMAIN 12:55
PROVIDERS: ATTEND Family Medicine
DX: J34.89 Other specified disorders of nose and nasal sinuses (principal); R42 Dizziness and giddiness; Z98.890 Other specified postprocedural states
CPT/HCPCS: 70480; 70486

== ENCOUNTER → 2019-07-31 | Outpatient (CLI) | payer MEDICARE ==
--- NOTE | 2019-07-31 14:04 | US ---
EXAMINATION TYPE: US carotid duplex BILAT DATE OF EXAM: 07/31/2019 COMPARISON: NONE CLINICAL HISTORY: 30 DAY-R00.2 Palpitations; h81.13 R42. EXAM MEASUREMENTS: RIGHT: Peak Systolic Velocity (PSV) cm/sec ----- Right CCA: 89.7 ----- Right ICA: 91.9 ----- Right ECA: 65.7 ICA/CCA ratio: 1.0 RIGHT: End Diastole cm/sec ----- Right CCA: 20.4 ----- Right ICA: 27.0 ----- Right ECA: 8.8 LEFT: Peak Systolic Velocity (PSV) cm/sec ----- Left CCA: 84.2 ----- Left ICA: 82.1 ----- Left ECA: 66.4 ICA/CCA ratio: 1.0 LEFT: End Diastole cm/sec ----- Left CCA: 18.2 ----- Left ICA: 22.8 ----- Left ECA: 8.5 VERTEBRALS (direction of flow): Right Vertebral: Antegrade Left Vertebral: Antegrade Rhythm: Normal Mild atherosclerotic changes with no elevated velocities. IMPRESSION: Mild degree of grayscale atheromatous plaquing with no sonographically evident hemodynam ically significant stenosis within either visualized carotid arterial system. Criteria for Assigning % of Stenosis / Diameter reduction (Estimation based on the indirect measurements of the internal carotid artery velocities (ICA PSV). 1. Normal (no stenosis)=ICA PSV < 125 cm/s: ratio < 2.0: ICA EDV<40 cm/s. 2. Less than 50% stenosis=ICA PSV < 125 cm/s: ratio < 2.0: ICA EDV<40 cm/s. 3. 50 to 69% stenosis=ICA PSV of 125 to 230 cm/s: ration 2.0 ? 4.0: ICA EDV 40-100 cm/s. 4. Greater than 70% stenosis to near occlusion= ICA PSV > 230 cm/s: ratio > 4.0: ICA EDV > 100 cm/s. 5. Near occlusion= ICA PSV velocities may be low or undetectable: variable ratio and ICA EDV. 6. Total occlusion=unable to detect flow.
== END | disposition home or self-care (01) ==
LOC: RADECHMAIN 12:22
PROVIDERS: ATTEND Family Medicine
DX: I65.23 Occlusion and stenosis of bilateral carotid arteries (principal); I49.1 Atrial premature depolarization; I49.3 Ventricular premature depolarization; I47.1 Supraventricular tachycardia
CPT/HCPCS: 93270; 93880

== ENCOUNTER 2019-09-04 10:48 | Emergency (ER) | payer MEDICARE ==
[2019-09-04] MEDS ORDERED: SODIUM CHLORIDE 0.9% 500 ML 500 ML IV STA (11:27)
--- NOTE | 2019-09-04 11:58 | XR ---
EXAMINATION TYPE: XR chest 2V DATE OF EXAM: 09/04/2019 COMPARISON: NONE HISTORY: Dysrhythmia TECHNIQUE: Frontal and lateral views of the chest are obtained. FINDINGS: There is no focal air space opacity, pleural effusion, or pneumothorax seen. Pulmonary hyp erinflation of underlying COPD with flattening of the diaphragms. The cardiac silhouette size is with in normal limits. The osseous structures are intact. Diffuse osseous demineralization is evident. IMPRESSION: No acute cardiopulmonary process. Underlying COPD.
--- NOTE | 2019-09-04 12:06 | ED ---
General Adult HPI - General Chief complaint: Chest Pain Stated complaint: chest tightness Time Seen by Provider: 09/04/19 10:50 Source: patient, RN notes reviewed Mode of arrival: ambulatory Limitations: no limitations - History of Present Illness Initial comments: This is a 74-year-old female who presents emergency Department with a past medical history significant for high cholesterol. Patient comes in complaining of having multiple episodes of a fluttering feeling in the left side of her chest. Patient states this is been ongoing off and on for 6 months Patient states it only happens when she sleeping in no aches her up. Patient states that last between 5-30 seconds most the time but on occasion it has lasted 5 minutes. Patient states is also a tightness in her chest when it occurs and some shortness of breath. Patient states currently she is not expressing any of the symptoms. Patient states she did wear a event monitor for 30 days but no one has given her the results. Patient denies any recent fever chills. Patient denies any recent coughing. Patient denies any recent trips or travel. Patient denies any calf pain patient with leg swelling. Patient denies any lightheadedness or dizziness. Patient denies any headache patient denies numbness weakness. Patient denies any chest pain only some tightness. - Related Data Home Medications Medication Instructions Recorded Confirmed Iron(Unknown Dose) 1 tab PO DAILY 09/04/19 09/04/19 Magnesium(Unknown Dose) 1 tab PO DAILY 09/04/19 09/04/19 Vitamin B Complex 1 cap PO DAILY 09/04/19 09/04/19 Allergies Allergy/AdvReac Type Severity Reaction Status Date / Time codeine Allergy Rash/Hives Verified 09/04/19 11:12 hydromorphone [From Dilaudid] Allergy Nausea & Verified 09/04/19 11:12 Vomiting levofloxacin Allergy Nausea & Verified 09/04/19 11:12 Vomiting pseudoephedrine Allergy Anaphylaxis Verified 09/04/19 11:12 Review of Systems ROS Statement: Those systems with pertinent positive or pertinent negative responses have been documented in the HPI. ROS Other: All systems not noted in ROS Statement are negative. Past Medical History Past Medical History: Cancer, Hyperlipidemia Additional Past Medical History / Comment(s): Dry eye, seasonal allergies,. Non-Hodgkins Lymphoma -last tx 10/03. Bowel Obstruction -08/17-08/18/18. hx back pain- position carefully History of Any Multi-Drug Resistant Organisms: None Reported Past Surgical History: Appendectomy, Back Surgery, Breast Surgery, Section Additional Past Surgical History / Comment(s): Back surgery with rods and pins- L4,L5,S1 fused, power port placed for chemo-REMOVED, marlene breast biopsies Past Anesthesia/Blood Transfusion Reactions: Postoperative Nausea & Vomiting (PONV) Past Psychological History: No Psychological Hx Reported Smoking Status: Former smoker Past Alcohol Use History: Occasional Past Drug Use History: None Reported - Past Family History Father Family Medical History: Cancer Additional Family Medical History / Comment(s): Colon Cancer Mother Family Medical History: Cancer Additional Family Medical History / Comment(s): Breast cancer General Exam - General Exam Comments Initial Comments: GENERAL: Patient is well-developed and well-nourished. Patient is nontoxic and well- hydrated and is in no acute distress. ENT: Neck is soft and supple. No significant lymphadenopathy is noted. Oropharynx is clear. Moist mucous membranes. Neck has full range of motion without eliciting any pain. EYES: The sclera were anicteric and conjunctiva were pink and moist. Extraocular movements were intact and pupils were equal round and reactive to light. Eyelids were unremarkable. PULMONARY: Unlabored respirations. Good breath sounds bilaterally. No audible rales rhonchi or wheezing was noted. CARDIOVASCULAR: There is a regular rate and rhythm without any murmurs gallops or rubs. ABDOMEN: Soft and nontender with normal bowel sounds. SKIN: Skin is clear with no lesions or rashes and otherwise unremarkable. NEUROLOGIC: Patient is alert and oriented x3. Cranial nerves II through XII are grossly intact. Motor and sensory are also intact. Normal speech, volume and content. Symmetrical smile. MUSCULOSKELETAL: Normal extremities with adequate strength and full range of motion. No lower extremity swelling or edema. No calf tenderness. LYMPHATICS: No significant lymphadenopathy is noted PSYCHIATRIC: Normal psychiatric evaluation. Limitations: no limitations Course Vital Signs 09/04/19 09/04/19 09/04/19 10:50 11:43 13:16 Temperature 97.9 F Pulse Rate 67 61 61 Respiratory 18 16 18 Rate Blood Pressure 145/80 145/83 117/67 O2 Sat by Pulse 98 100 99 Oximetry Medical Decision Making - Medical Decision Making EKG shows sinus bradycardia 56 bpm [place] interval 226 QRS is 88 QT interval 414 QTC is 399. Patient's EKG shows no ST segment elevation or depression or T wave abnormalities are noted. Patient has had no episodes while in the emergency department. Patient's chest x-ray shows no acute abnormalities. When I spoke with the patient she felt as though the fluttering sensation in her chest wall was muscular in nature. New. Patient is to follow-up with her [facility] doctor. - Lab Data Result diagrams: 09/04/19 11:31 09/04/19 11:31 Lab Results 09/04/19 09/04/19 09/04/19 Range/Units 11:31 11:31 11:31 WBC 5.9 (3.8-10.6) k/uL RBC 4.30 (3.80-5.40) m/uL Hgb 14.0 (11.4-16.0) gm/dL Hct 39.9 (34.0-46.0) % MCV 92.7 (80.0-100.0) fL MCH 32.4 (25.0-35.0) pg MCHC 35.0 (31.0-37.0) g/dL RDW 12.8 (11.5-15.5) % Plt Count 227 (150-450) k/uL Neutrophils % 61 % Lymphocytes % 25 % Monocytes % 6 % Eosinophils % 4 % Basophils % 1 % Neutrophils # 3.6 (1.3-7.7) k/uL Lymphocytes # 1.5 (1.0-4.8) k/uL Monocytes # 0.4 (0-1.0) k/uL Eosinophils # 0.2 (0-0.7) k/uL Basophils # 0.0 (0-0.2) k/uL PT 9.6 (9.0-12.0) sec INR 0.9 (<1.2) APTT 23.8 (22.0-30.0) sec Sodium 141 (137-145) mmol/L Potassium 4.2 (3.5-5.1) mmol/L Chloride 107 (98-107) mmol/L Carbon Dioxide 27 (22-30) mmol/L Anion Gap 7 mmol/L BUN 19 H (7-17) mg/dL Creatinine 0.86 (0.52-1.04) mg/dL Est GFR (CKD-EPI)AfAm 78 (>60 ml/min/1.73 sqM) Est GFR (CKD-EPI)NonAf 67 (>60 ml/min/1.73 sqM) Glucose 83 (74-99) mg/dL Calcium 9.4 (8.4-10.2) mg/dL Magnesium 2.1 (1.6-2.3) mg/dL Total Bilirubin 0.3 (0.2-1.3) mg/dL AST 26 (14-36) U/L ALT 19 (9-52) U/L Alkaline Phosphatase 88 (38-126) U/L Troponin I (0.000-0.034) ng/mL Total Protein 7.0 (6.3-8.2) g/dL Albumin 3.9 (3.5-5.0) g/dL TSH 3.720 (0.465-4.680) mIU/L Free T4 0.90 (0.78-2.19) ng/dL Urine Opiates Screen (NotDetected) Ur Oxycodone Screen (NotDetected) Urine Methadone Screen (NotDetected) Ur Propoxyphene Screen (NotDetected) Ur Barbiturates Screen (NotDetected) U Tricyclic Antidepress (NotDetected) Ur Phencyclidine Scrn (NotDetected) Ur Amphetamines Screen (NotDetected) U Methamphetamines Scrn (NotDetected) U Benzodiazepines Scrn (NotDetected) Urine Cocaine Screen (NotDetected) U Marijuana (THC) Screen (NotDetected) 09/04/19 09/04/19 Range/Units 11:31 13:19 WBC (3.8-10.6) k/uL RBC (3.80-5.40) m/uL Hgb (11.4-16.0) gm/dL Hct (34.0-46.0) % MCV (80.0-100.0) fL MCH (25.0-35.0) pg MCHC (31.0-37.0) g/dL RDW (11.5-15.5) % Plt Count (150-450) k/uL Neutrophils % % Lymphocytes % % Monocytes % % Eosinophils % % Basophils % % Neutrophils # (1.3-7.7) k/uL Lymphocytes # (1.0-4.8) k/uL Monocytes # (0-1.0) k/uL Eosinophils # (0-0.7) k/uL Basophils # (0-0.2) k/uL PT (9.0-12.0) sec INR (<1.2) APTT (22.0-30.0) sec Sodium (137-145) mmol/L Potassium (3.5-5.1) mmol/L Chloride (98-107) mmol/L Carbon Dioxide (22-30) mmol/L Anion Gap mmol/L BUN (7-17) mg/dL Creatinine (0.52-1.04) mg/dL Est GFR (CKD-EPI)AfAm (>60 ml/min/1.73 sqM) Est GFR (CKD-EPI)NonAf (>60 ml/min/1.73 sqM) Glucose (74-99) mg/dL Calcium (8.4-10.2) mg/dL Magnesium (1.6-2.3) mg/dL Total Bilirubin (0.2-1.3) mg/dL AST (14-36) U/L ALT (9-52) U/L Alkaline Phosphatase (38-126) U/L Troponin I <0.012 (0.000-0.034) ng/mL Total Protein (6.3-8.2) g/dL Albumin (3.5-5.0) g/dL TSH (0.465-4.680) mIU/L Free T4 (0.78-2.19) ng/dL Urine Opiates Screen Not Detected (NotDetected) Ur Oxycodone Screen Not Detected (NotDetected) Urine Methadone Screen Not Detected (NotDetected) Ur Propoxyphene Screen Not Detected (NotDetected) Ur Barbiturates Screen Not Detected (NotDetected) U Tricyclic Antidepress Not Detected (NotDetected) Ur Phencyclidine Scrn Not Detected (NotDetected) Ur Amphetamines Screen Not Detected (NotDetected) U Methamphetamines Scrn Not Detected (NotDetected) U Benzodiazepines Scrn Not Detected (NotDetected) Urine Cocaine Screen Not Detected (NotDetected) U Marijuana (THC) Screen Not Detected (NotDetected) Disposition Clinical Impression: Palpitations Disposition: HOME SELF-CARE Condition: Good Instructions (If sedation given, give patient instructions): Heart Palpitations (ED) Is patient prescribed a controlled substance at d/c from ED?: No Referrals: Darron Underwood DO [Primary Care Provider] - 1-2 days Time of Disposition: 14:35
[2019-09-04 12:10] LABS: Albumin 3.9 g/dL (3.5-5.0); Calcium 9.4 mg/dL (8.4-10.2); Magnesium 2.1 mg/dL (1.6-2.3); Potassium 4.2 mmol/L (3.5-5.1); Total Bilirubin 0.3 mg/dL (0.2-1.3)
[2019-09-04 12:11] LABS: Basophils % (A) 1 %; Eosinophils # (A) 0.2 k/uL (0-0.7); Eosinophils % (A) 4 %; HCT 39.9 % (34.0-46.0); Lymphocytes # (A) 1.5 k/uL (1.0-4.8); Lymphocytes % (A) 25 %; MCH 32.4 pg (25.0-35.0); MCV 92.7 fL (80.0-100.0); Mean Platelet Volume 6.9; Monocytes # (A) 0.4 k/uL (0-1.0); Monocytes % (A) 6 %; Neutrophils # (A) 3.6 k/uL (1.3-7.7); Neutrophils % (A) 61 %; Platelet Count 227 k/uL (150-450); RDW 12.8 % (11.5-15.5); WBC 5.9 k/uL (3.8-10.6)
[2019-09-04 12:13] LABS: INR 0.9 (<1.2); Partial Thromboplastin Time 23.8 sec (22.0-30.0); Prothrombin Time 9.6 sec (9.0-12.0)
[2019-09-04 12:26] LABS: T4, Free (Free Thyroxine) 0.9 ng/dL (0.78-2.19)
[2019-09-04 13:17] VITALS: RESP 18
[2019-09-04 13:51] LABS: Amphetamine Screen,Urine Not Detected (NotDetected); Barbiturate Screen,Urine Not Detected (NotDetected); Benzodiazepines Screen,Urine Not Detected (NotDetected); Cocaine Screen,Urine Not Detected (NotDetected); Methadone Screen, Urine Not Detected (NotDetected); Opiate Screen,Urine Not Detected (NotDetected); Oxycodone Screen, Urine Not Detected (NotDetected); Phencyclidine Screen,Urine Not Detected (NotDetected); Tricyclic Antidepressant,Urine Not Detected (NotDetected); Urn Cannabinoid Scrn Not Detected (NotDetected)
[2019-09-04 15:03] VITALS: BP 123/74; PULSE 58; TEMP 98.2
== END 2019-09-04 14:55 | disposition home or self-care (01) ==
LOC: EC 10:48
DX: R00.2 Palpitations (principal); R00.1 Bradycardia, unspecified; R07.89 Other chest pain; R06.02 Shortness of breath; Z87.891 Personal history of nicotine dependence; Z88.1 Allergy status to other antibiotic agents; Z88.5 Allergy status to narcotic agent; Z88.8 Allergy status to other drugs, medicaments and biological substances; Z85.72 Personal history of non-Hodgkin lymphomas; Z87.39 Personal history of other diseases of the musculoskeletal system and connective tissue; Z92.21 Personal history of antineoplastic chemotherapy; Z98.1 Arthrodesis status
CPT/HCPCS: 36415; 71046; 80053; 80306; 83735; 84439; 84443; 84484; 85025; 85610; 85730; 93005; 99285

== ENCOUNTER → 2019-09-12 | Outpatient (CLI) | payer MEDICARE ==
--- NOTE | 2019-09-14 12:05 | EST ---
- Stress Test Note Stress Test Results/Findings: Exam Performed: stress test Exam Date: 09/12/19 Reason for Exam: CP, SOB Height: 5 ft 5 in Weight: 84.822 kg Protocol: EXERCISE STRESS TEST Stage: 2 Duration of Exercise: 3:30 Resting Heart Rate: 69 Resting Blood Pressure: 126/71 Maximum Achieved Heart Rate: 134 Maximum Achieved Blood Pressure: 171/71 85% PMHR: 124 100% PMHR: 146 METS: 5.2 Technologist Comment: Stress Test Results/Findings: This is a 74-year-old female being evaluated for symptoms of palpitations. Patient has history of hypercholesterolemia and smoking history. Stress data: Baseline EKG showed sinus rhythm with mild diffuse ST-T abnormalities in inferolateral leads. Blood pressure at rest is 126/71 with pulse rate of 69. Patient walked on a Дмитрий protocol for 3 minutes and 31 seconds achieving a maximal heart rate of 134 with a blood pressure of 1 6471. EKGs taken during exercise showed more pronounced ST-T changes in inferolateral leads. Patient did not experience any chest pain. The test was stopped because of shortness of breath and fatigue. Patient had occasional PVCs. Final impression #1. Inconclusive stress test because of baseline EKG of normalities. #2. Limited exercise capacity and the test was stopped because of shortness of breath and fatigue #3. Occasional PVCs were noted during exercise MTDD
== END | disposition home or self-care (01) ==
LOC: RADNMMAIN 10:20
PROVIDERS: ATTEND Family Medicine
DX: R94.31 Abnormal electrocardiogram [ECG] [EKG] (principal); R00.2 Palpitations; E78.2 Mixed hyperlipidemia; R06.02 Shortness of breath; R07.89 Other chest pain
CPT/HCPCS: 93017

== ENCOUNTER → 2019-12-14 | Outpatient (CLI) | payer MEDICARE ==
--- NOTE | 2019-12-14 16:00 | MR ---
EXAMINATION TYPE: MR brain wo/w con DATE OF EXAM: 12/14/2019 COMPARISON: CT IAC July 16, 2019 HISTORY: Vertigo, Hx of Non-hodgkins lymphoma TECHNIQUE: Multiplanar, multisequence images of the brain and brainstem is performed without and with IV contras t, utilizing 8.5 mL intravenous Gadavist . FINDINGS: Diffusion weighted images demonstrate no evidence of a recent infarct or other diffusion ab normality. There is no worrisome extra-axial fluid collection. Mild ventricular and sulcal prominenc e. Scattered foci of T2 hyperintensity seen throughout the white matter bilaterally. Estimated 30-40 scattered lesions. Lesions are nonspecific in appearance and distribution are most likely on the basi s of product of proximal vessel ischemic change in patient this age. Midline structures demonstrate normal morphology. The craniocervical junction appears within normal limits. Post contrast images demonstrate no abnormal enhancement. The dural venous sinuses appear pa tent. The visualized sinuses are clear and the globes are intact. No suspicious fluid signal bilatera l mastoid air cells. IMPRESSION: Mild diffuse cerebral atrophy and moderate chronic small vessel ischemic change. No suspi cious enhancement noted.
== END | disposition home or self-care (01) ==
LOC: RADMRIMAIN 15:09
PROVIDERS: ATTEND Family Medicine
DX: G31.89 Other specified degenerative diseases of nervous system (principal); I67.82 Cerebral ischemia
CPT/HCPCS: 70553; A9585

== ENCOUNTER → 2020-09-01 | Outpatient (CLI) | payer MEDICARE ==
--- NOTE | 2020-09-01 11:48 | US ---
EXAMINATION TYPE: US abdomen complete DATE OF EXAM: 09/01/2020 COMPARISON: 02/12/2019 CLINICAL HISTORY: 75-year-old female Q44.6 CYSTIC DISEASE OF LIVER. EXAM MEASUREMENTS: Liver Length: 10.3 cm Gallbladder Wall: Surgically absent CBD: 0.1 cm Spleen: 9.9 cm Right Kidney: 9.3 x 4.7 x 4.0 cm Left Kidney: 10.5 x 4.6 x 4.3 cm Pancreas: Tail obscured by overlying bowel gas. Visualized portions show no gross abnormality. Liver: A few scattered hepatic cysts, largest measuring 2.1 x 2.8 x 2.2cm . Gallbladder: Surgically absent CBD: wnl Spleen: wnl Right Kidney: Superior pole obscured by bowel gas. No hydronephrosis. Left Kidney: Superior pole obscured by bowel gas. No hydronephrosis. Upper IVC: wnl Abd Aorta: Upper abdominal aorta borderline ectatic at 2.5 cm. IMPRESSION: A few benign hepatic cysts, largest measuring 2.8 cm. Status post cholecystectomy. No biliary ductal dilatation.
== END | disposition home or self-care (01) ==
LOC: RADUSWWP 09:43
PROVIDERS: ATTEND Family Medicine
DX: K76.89 Other specified diseases of liver (principal); Z90.49 Acquired absence of other specified parts of digestive tract
CPT/HCPCS: 76700

== ENCOUNTER → 2020-09-11 | Outpatient (CLI) | payer MEDICARE ==
--- NOTE | 2020-09-11 15:44 | US ---
EXAMINATION TYPE: US thyroid st tissue head/neck DATE OF EXAM: 09/11/2020 COMPARISON: NONE CLINICAL HISTORY: E06.3 Autoimmune thyroiditis. abn labs. No thyroid meds. GLAND SIZE: Right Lobe: 3.5 x 1.3 x 1.3 cm Overall Parenchyma: homogenous Left Lobe: 3.5 x 1.3 x 1.5 cm Overall Parenchyma: homogeneous Isthmus Thickness: 0.2 cm NODULES RIGHT: # of nodules measured on right: 1 1. 0.8 X 0.7 x 0.5 cm mixed nodule at the upper pole with well-defined margins. This nodule is wid er than tall and shows intranodular vascularity. Prior size: No prior LEFT: # of nodules measured on left: 3 1. 1.5 X 1.2 x 1.2 cm predominantly solid nodule at the mid pole with well-defined margins. This n odule is wide as tall and shows intranodular vascularity. Prior size: No prior 2. 0.6 X 0.5 x 0.5 cm mixed nodule at the mid pole with well-defined margins. This nodule is wide a s tall and shows intranodular vascularity. Prior size: No prior 3. 0.5 X 0.5 x 0.5 cm mixed nodule at the lower pole with well-defined margins. This nodule is wide as tall and shows intranodular vascularity. Prior size: No prior ISTHMUS: # of nodules measured in the isthmus: 0 Bilateral neck scanned, no evidence of lymphadenopathy. Heterogeneous small size thyroid with few small scattered subcentimeter nodules. IMPRESSION: As above. Dominant 1.5 cm left-sided nodule is TR 3 lesion.Mildly Suspicious: Follow if ? 1.5 cm at 1, 3, and 5 y
== END | disposition home or self-care (01) ==
LOC: RADUSWWP 14:56
PROVIDERS: ATTEND Family Medicine
DX: E04.2 Nontoxic multinodular goiter (principal)
CPT/HCPCS: 76536

== ENCOUNTER 2020-10-10 11:55 | Day surgery (SDC) | payer MEDICARE ==
[2020-10-10 14:50] VITALS: RESP 16; TEMP 98
[2020-10-10 15:01] VITALS: BP 121/69; PULSE 62
--- NOTE | 2020-10-10 16:15 | US ---
EXAMINATION TYPE: US FNA first lesion DATE OF EXAM: 10/10/2020 COMPARISON: Ultrasound 09/11/2020 HISTORY: Thyroid nodule. Maximal barrier technique was utilized. After informed consent, skin overlying the left lobe thyroid nodule was localized with ultrasound and the overlying skin prepped and draped. Ultrasound was utili zed using sterile technique. Lidocaine was used for local anesthesia. Five passes with a 25-gauge ne edle were made into the nodule and aspirated specimen was submitted to cytology. Following the proce dure hemostasis achieved. No immediate complication. The patient discharged in stable condition. IMPRESSION: STATUS POST ULTRASOUND GUIDED FINE NEEDLE ASPIRATION OF THYROID NODULE, PATHOLOGY IS PEND ING. THIS PROCEDURE WAS PERFORMED BY THE UNDERSIGNED.
== END 2020-10-10 14:45 | disposition home or self-care (01) ==
LOC: RADPROMAIN 11:55
PROVIDERS: ATTEND Family Medicine
DX: E04.8 Other specified nontoxic goiter (principal); E04.1 Nontoxic single thyroid nodule
CPT/HCPCS: 10005; 88173; 88305

== ENCOUNTER → 2021-01-16 | Outpatient (CLI) | payer MEDICARE ==
--- NOTE | 2021-01-16 10:54 | US ---
EXAMINATION TYPE: US venous doppler duplex LE LT DATE OF EXAM: 01/16/2021 10:29 AM COMPARISON: NONE CLINICAL HISTORY: I80.9 PHLEBITIS AND THROMBOPHLEBITIS. Left knee pain, no h/o dvt SIDE PERFORMED: Left TECHNIQUE: The lower extremity deep venous system is examined utilizing real time linear array sonog layne with graded compression, doppler sonography and color-flow sonography. VESSELS IMAGED: Common Femoral Vein Deep Femoral Vein Greater Saphenous Vein * Femoral Vein Popliteal Vein Small Saphenous Vein * Proximal Calf Veins (* superficial vessels) Left Leg: Negative for DVT 4.5 x 2.4 x 2.7cm complex fluid collection seen medial popiteal fossa at area of pain IMPRESSION: 1. Left lower extremity ultrasound negative for deep venous thrombosis. 2. Left popliteal cyst
== END | disposition home or self-care (01) ==
LOC: RADUSWWP 10:08
PROVIDERS: ATTEND Orthopaedic Surgery
DX: M71.22 Synovial cyst of popliteal space [Baker], left knee (principal); M17.12 Unilateral primary osteoarthritis, left knee

== ENCOUNTER 2022-05-24 10:58 | Emergency (ER) | payer MEDICARE ==
[2022-05-24 11:14] VITALS: BP 151/79; PULSE 65; RESP 18; TEMP 97.6
--- NOTE | 2022-05-24 11:35 | ED ---
General Adult HPI - General Chief complaint: Extremity Injury, Lower Stated complaint: Foot Fracture Time Seen by Provider: 05/24/22 11:25 Source: patient, RN notes reviewed, old records reviewed Mode of arrival: ambulatory Limitations: no limitations - History of Present Illness Initial comments: Well-appearing 76-year-old female presents to the emergency room with complaints of left foot pain for 9 days. Patient states she felt a pop when playing croquet 9 days ago. She's been taking Advil for pain but it only last for a few hours and the pain returned. She states walking on hard surfaces radiates somewhat the pain. -: days(s) (9) Location: left, lower extremity (foot) Severity scale (1-10): 0 Consistency: intermittent, now resolved Improves with: immobilization, medication (advil) Worsens with: movement, other (walking) Associated Symptoms: denies other symptoms - Related Data Home Medications Medication Instructions Recorded Confirmed Fluticasone Nasal [place] [Flonase 1 spray EA NOSTRIL DAILY 09/30/20 05/24/22 Nasal [place]] Oxymetazoline 0.05% Nasl [place] 1 spray EA NOSTRIL HS 09/30/20 05/24/22 [Afrin 0.05% Nasal [place]] Cetirizine HCl [Zyrtec] 10 mg PO DAILY 05/24/22 05/24/22 Ibuprofen [Advil] 600 mg PO Q8HR PRN 05/24/22 05/24/22 Allergies Allergy/AdvReac Type Severity Reaction Status Date / Time codeine Allergy Rash/Hives Verified 05/24/22 12:02 hydromorphone [From Dilaudid] Allergy Nausea & Verified 05/24/22 12:02 Vomiting levofloxacin Allergy Nausea & Verified 05/24/22 12:02 Vomiting pseudoephedrine Allergy Anaphylaxis Verified 05/24/22 12:02 Review of Systems ROS Statement: Those systems with pertinent positive or pertinent negative responses have been documented in the HPI. ROS Other: All systems not noted in ROS Statement are negative. Past Medical History Past Medical History: Cancer, Hyperlipidemia, Rheumatoid Arthritis (RA) Additional Past Medical History / Comment(s): Dry eye, seasonal allergies,. Non-Hodgkins Lymphoma -last tx 10/03. Bowel Obstruction -08/17-08/18/18. hx back pain, thyroid nodules History of Any Multi-Drug Resistant Organisms: None Reported Past Surgical History: Appendectomy, Back Surgery, Breast Surgery, Section, Cholecystectomy Additional Past Surgical History / Comment(s): Back surgery with rods and pins- L4,L5,S1 fused, power port placed for chemo-REMOVED, marlene breast biopsies, Past Anesthesia/Blood Transfusion Reactions: Postoperative Nausea & Vomiting (PONV) Past Psychological History: No Psychological Hx Reported Smoking Status: Former smoker Past Alcohol Use History: Daily Past Drug Use History: None Reported - Past Family History Father Family Medical History: Cancer Additional Family Medical History / Comment(s): Colon Cancer Mother Family Medical History: Cancer Additional Family Medical History / Comment(s): Breast cancer General Exam Limitations: no limitations General appearance: alert, in no apparent distress Respiratory exam: Absent: respiratory distress, accessory muscle use Cardiovascular Exam: Present: regular rate Left Knee exam: Present: tenderness (Chronic meniscus), full knee extension. Absent: dislocation, effusion Lower Leg exam: Present: full ROM. Absent: tenderness, swelling Ankle exam: Present: full ROM. Absent: tenderness, swelling Foot/Toe exam: Present: full ROM, tenderness (arch). Absent: swelling, ecchymosis, calcaneal tenderness, tenderness at base of 5th metatarsal Neurovascular tendon exam: Present: no vascular compromise. Absent: abnormal cap refill, extremity cold to touch, pallor, foot drop Neurological exam: Present: alert, oriented X3 Psychiatric exam: Present: normal affect, normal mood Skin exam: Present: warm, dry, normal color. Absent: cyanosis, diaphoretic, petechiae, pallor Course Vital Signs 05/24/22 11:09 Temperature 97.6 F Pulse Rate 65 Respiratory 18 Rate Blood Pressure 151/79 Medical Decision Making - Medical Decision Making X-rays negative for fracture. Patient's pain is in the arch of her foot. She states the pain is better when she walks and hard surfaces. She was given orthopedic postop shoe and directed to follow up with her primary care doctor or podiatry. Continue Tylenol and Motrin for pain. Return to the emergency room with any new or concerning symptoms. She is agreeable to this plan of care. Case discussed with Dr. Brand Disposition Clinical Impression: Sprain of foot Disposition: HOME SELF-CARE Condition: Good Instructions (If sedation given, give patient instructions): Foot Sprain (ED) Additional Instructions: Wear postop shoe for support and follow up with your primary care doctor or podiatry. Continue Tylenol and Motrin for pain. Return to the emergency room with any new or concerning symptoms. Is patient prescribed a controlled substance at d/c from ED?: No Referrals: Darron Underwood DO [Primary Care Provider] - 1-2 days Miki Arriaza DPM [STAFF PHYSICIAN] - 1-2 days Time of Disposition: 12:33
--- NOTE | 2022-05-24 12:06 | XR ---
EXAMINATION TYPE: XR foot complete LT DATE OF EXAM: 05/24/2022 11:44 AM INDICATION: Patient age:Female; 76 years old; Reason for study: pain; COMPARISON: None TECHNIQUE: The left foot was examined in the AP, oblique, and lateral projections. FINDINGS: Chronic deformity involving the metatarsal head of the fifth digit. There is mild soft tiss ue swelling around this joint with punched out appearance of the metatarsal head of the fifth digit.N o evidence of any acute osseous pathology. IMPRESSION: No evidence of acute fracture Chronic appearing deformity of the head of the fifth metatarsal punched-out appearance correlate for gout
== END 2022-05-24 13:12 | disposition home or self-care (01) ==
LOC: EC 10:58
DX: S93.602A Unspecified sprain of left foot, initial encounter (principal); E78.5 Hyperlipidemia, unspecified; Z87.891 Personal history of nicotine dependence; X50.1XXA Overexertion from prolonged static or awkward postures, initial encounter
CPT/HCPCS: 99283

== ENCOUNTER → 2022-11-11 | Outpatient (CLI) | payer MEDICARE ==
--- NOTE | 2022-11-11 18:31 | BD ---
EXAMINATION TYPE: Axial Bone Density DATE OF EXAM: 11/11/2022 COMPARISON: 04.10.2019 CLINICAL HISTORY: 77 years year old Female. ICD-10 CODE: M8480 Height: 64.2 Weight: 162 FRAX RISK QUESTIONS: Glucocorticoids (More than 3mos): YES (Ex: prednisone, prednisolone, methylprednisolone, dexamethasone, and hydrocortisone). History of Fracture in Adulthood: YES RHEUMATOID ARTHRITIS RISK FACTORS HISTORY OF: HX OF BROKEN RIBS >40 YRS OLD Surgery to Spine FUSION L4,5 AND S1 WITH PINS AND RODS...2013 Family History of Osteoporosis: YES, MOTHER Postmenopausal woman: 49 YRS OLD Take estrogen and/or progesterone medications: YES, FOR 15 YRS Lost more than 2 inches in height since high school: YES Hyperparathyroidism: NO Adrenal Insufficiency: NO MEDICATIONS: Prednisone or other steroids: YES, FOR ASTHMA, ALLERGY MEDS, FLONASE, ETC Additional Medications: CALCIUM AND VIT D, HX OF LYMPHOMA, HX OF CHEMO, INFUSIONS FOR RA, X2 THIS YR Additional History: ARTHRITIS, LYMPHOMA, ALLERGIES, ASTHMA, RHEUMATOID AR, EXAM MEASUREMENTS: Bone mineral densitometry was performed using the [employer] System. SURGICAL REPAIR 2016 SPINE Bone mineral density about the R hip (g/cm2): 1.076 Bone mineral density about the L hip (g/cm2): 1.087 T Score values are as follows: -----R Neck: 0.5 -----L Neck: 0.8 -----R Total: 0.5 -----L Total: 0.6 Bone mineral density has: Decreased -1.9% since study of: 04.10.2019 Bone mineral density about the L Wrist (g/cm2): 0.494 T Score values are as follows: -----Dist. R+U: -2.4 -----Prox. R+U: -1.7 -----Radius total: -2.5 Bone mineral density has: Decreased -4.5% since study of: 04.10.2019 FRAX%s: The graph provided illustrates a 20.9% chance for a major osteoporotic fx and a 1.9% chance f or the hips probability for fx in 10 years time. IMPRESSION: Osteopenia (T Score between -2.5 and -1). There is slightly increased risk of fracture and the patient may be considered for treatment. Re-Screen 2-5 years. NOTE: T-SCORE=SD OF THE YOUNG ADULT MEAN.
--- NOTE | 2022-11-12 07:54 | MM ---
Reason for Exam: Screening (asymptomatic). Last mammogram was performed 3 year(s) and 7 month(s) ago. Patient History: Menarche at age 14. First Full-Term at age 20. Postmenopausal. Other cancer, age 68. Estrogen for 8 years, 9 months. Progesterone for 8 years, 9 months. Cyst Aspiration on the Right side. Cyst Aspiration on the Right side. Core Biopsy on the Right side. Cyst Aspiration on the Left side. Cyst Aspiration on the Left side. Excisional Biopsy on the Right side. Excisional Biopsy on the Left side. 07/12/2003, Benign Stereotactic Core Biopsy on the right side. Sister had breast cancer. Mother had breast cancer. Risk Values: Annie 5 year model risk: 9.5%. NCI Lifetime model risk: 17.4%. Prior Study Comparison: 12/02/2011 Bilateral Screening Mammogram, [facility]. 12/27/2016 Screening Mammogram, [place]. 04/10/2019 Bilateral Screening Mammogram, [facility]. Tissue Density: There are scattered fibroglandular densities. Findings: Analyzed By CAD. A few tiny benign round calcifications in the left breast are redemonstrated. There is no suspicious group of microcalcifications or new suspicious mass in either breast. Overall Assessment: Benign, BI-RAD 2 Management: Screening Mammogram of both breasts in 1 year. A clinical breast exam by your physician is recommended on an annual basis and results should be correlated with mammographic findings. Electronically signed and approved by: Fabrice Malloy M.D.
== END | disposition home or self-care (01) ==
LOC: RADMAMWWP 10:27
PROVIDERS: ATTEND Family Medicine
DX: Z12.31 Encounter for screening mammogram for malignant neoplasm of breast (principal); M84.80 Other disorders of continuity of bone, unspecified site; Z78.0 Asymptomatic menopausal state; Z80.3 Family history of malignant neoplasm of breast; Z79.52 Long term (current) use of systemic steroids; M06.9 Rheumatoid arthritis, unspecified; Z98.1 Arthrodesis status; Z13.820 Encounter for screening for osteoporosis; M85.80 Other specified disorders of bone density and structure, unspecified site
CPT/HCPCS: 77063; 77067; 77080

== ENCOUNTER → 2023-05-30 | Outpatient (CLI) | payer MEDICARE ==
--- NOTE | 2023-06-01 08:07 | CT ---
EXAMINATION TYPE: CT brain wo con DATE OF EXAM: 05/30/2023 COMPARISON: 07/16/2090 INDICATION: dizziness and head pressure DLP: 1050.70 mGycm, Automated exposure control for dose reduction was used. CONTRAST: None CT of the brain is performed utilizing 3 mm thick sections through the posterior fossa and 3 mm thick sections through the remaining calvarium. Study is performed within 24 hours of arrival to the hosp ital. No abnormal hyperdensity is present to suggest an acute intracranial hemorrhage. No mass lesion is evident. No acute infarcts are evident. Ventricles and sulci are appropriate for the patient age. Paranasal sinuses and mastoid air cells within the [id number] are clear. Prior uncinectomies. IMPRESSIONS: 1. No acute intracranial process. Follow-up MRI can be performed as clinically indicated
== END | disposition home or self-care (01) ==
LOC: RADCTMAIN 16:21
PROVIDERS: ATTEND Family Medicine
DX: R42 Dizziness and giddiness (principal); H92.03 Otalgia, bilateral; H69.82 Other specified disorders of Eustachian tube, left ear; R68.89 Other general symptoms and signs
CPT/HCPCS: 70450

== ENCOUNTER 2023-09-26 12:33 | Emergency (ER) | payer MEDICARE ==
[2023-09-26 12:54] VITALS: TEMP 97.4
--- NOTE | 2023-09-26 13:01 | ED ---
General Adult HPI - General Chief complaint: Arrhythmia/Palpitations Stated complaint: chest pains Time Seen by Provider: 09/26/23 12:40 Source: patient, RN notes reviewed, old records reviewed Mode of arrival: ambulatory Limitations: no limitations - History of Present Illness Initial comments: This is a 78-year-old female presents emergency department she states she has no medical history at this time. Patient states she takes no medication. Patient comes in today because her heart was pounding very hard this morning since she woke up at 8:00. Patient states she also has some chest pressure that disappeared about an hour prior to arrival. Patient states she had no shortness of breath or difficulty breathing worsen normal. Patient denies any palpitations. Patient denies any fever chills or cough. Patient denies any diaphoretic episodes. Patient denies any nausea vomiting. Patient states her some radiation of pain into her head. Patient denies any symptoms currently and thinks she should go home because she doesn't feel better now. Patient denies any swelling to the legs or calf tenderness. - Related Data Home Medications Medication Instructions Recorded Confirmed Fluticasone Nasal [place] [Flonase 1 spray EA NOSTRIL DAILY PRN 09/30/20 09/26/23 Nasal [place]] Cetirizine HCl [Zyrtec] 10 mg PO DAILY 05/24/22 09/26/23 Calcium Carbonate [Calcium] 600 mg PO BID 06/04/23 09/26/23 Cholecalciferol [Vitamin D3 (25 25 mcg PO DAILY 06/04/23 09/26/23 Mcg = 1000 Iu)] Ferrous Sulfate [Iron (65 MG 325 mg PO DAILY 06/04/23 09/26/23 Elemental)] Levalbuterol Hfa Inhaler [Xopenex 1 puff INHALATION RT-Q6H PRN 06/04/23 09/26/23 Hfa Inhaler] Multivitamins, Thera [Multivitamin 1 tab PO DAILY 06/04/23 09/26/23 (formulary)] Cyanocobalamin [Vitamin B-12] 500 mcg PO DAILY 09/26/23 09/26/23 Previous Rx's Medication Instructions Recorded Amoxicillin 500 mg PO Q8H #30 capsule 09/26/23 Allergies Allergy/AdvReac Type Severity Reaction Status Date / Time codeine Allergy Rash/Hives Verified 09/26/23 13:21 hydromorphone [From Dilaudid] Allergy Nausea & Verified 09/26/23 13:21 Vomiting levofloxacin Allergy Nausea & Verified 09/26/23 13:21 Vomiting pseudoephedrine Allergy Anaphylaxis Verified 09/26/23 13:21 Sulfa (Sulfonamide Allergy Rash/Hives Verified 09/26/23 13:21 Antibiotics) sulfamethoxazole Allergy Rash/Hives Verified 09/26/23 13:21 [From Bactrim] trimethoprim [From Bactrim] Allergy Rash/Hives Verified 09/26/23 13:21 Review of Systems ROS Statement: Those systems with pertinent positive or pertinent negative responses have been documented in the HPI. ROS Other: All systems not noted in ROS Statement are negative. Past Medical History Past Medical History: Cancer, Hyperlipidemia, Rheumatoid Arthritis (RA) Additional Past Medical History / Comment(s): Dry eye, seasonal allergies,. Non-Hodgkins Lymphoma -last tx 10/03. Bowel Obstruction -08/17-08/18/18. hx back pain, thyroid nodules History of Any Multi-Drug Resistant Organisms: None Reported Past Surgical History: Appendectomy, Back Surgery, Breast Surgery, Section, Cholecystectomy Additional Past Surgical History / Comment(s): Back surgery with rods and pins- L4,L5,S1 fused, power port placed for chemo-REMOVED, marlene breast biopsies, Past Anesthesia/Blood Transfusion Reactions: Postoperative Nausea & Vomiting (PONV) Past Psychological History: No Psychological Hx Reported Smoking Status: Former smoker Past Alcohol Use History: Daily Past Drug Use History: None Reported - Past Family History Father Family Medical History: Cancer Additional Family Medical History / Comment(s): Colon Cancer Mother Family Medical History: Cancer Additional Family Medical History / Comment(s): Breast cancer General Exam - General Exam Comments Initial Comments: GENERAL: Patient is well-developed and well-nourished. Patient is nontoxic and well-hydr ated and is in no acute distress. ENT: Neck is soft and supple. No significant lymphadenopathy is noted. Oropharynx is clear. Moist mucous membranes. Neck has full range of motion without eliciting any pain. EYES: The sclera were anicteric and conjunctiva were pink and moist. Extraocular mo vements were intact and pupils were equal round and reactive to light. Eyelids were unremarkable. PULMONARY: Unlabored respirations. Good breath sounds bilaterally. No audible rales rhonchi or wheezing was noted. CARDIOVASCULAR: There is a regular rate and rhythm without any murmurs gallops or rubs. ABDOMEN: Soft and nontender with normal bowel sounds. SKIN: Skin is clear with no lesions or rashes and otherwise unremarkable. NEUROLOGIC: Patient is alert and oriented x3. Cranial nerves II through XII are grossly intact. Motor and sensory are also intact. Normal speech, volume and content. Symmetrical smile. MUSCULOSKELETAL: Normal extremities with adequate strength and full range of motion. No lower extremity swelling or edema. No calf tenderness. LYMPHATICS: No significant lymphadenopathy is noted PSYCHIATRIC: Normal psychiatric evaluation. Limitations: no limitations Course Vital Signs 09/26/23 09/26/23 09/26/23 12:39 12:52 13:00 Temperature 97.4 F L Pulse Rate 86 80 Pulse Rate [ 84 Diamond Grinder ] Respiratory 17 18 Rate Blood Pressure 139/83 155/81 O2 Sat by Pulse 98 100 Oximetry 09/26/23 15:20 Temperature Pulse Rate 70 Pulse Rate [ Diamond Grinder ] Respiratory 18 Rate Blood Pressure 153/81 O2 Sat by Pulse 100 Oximetry Medical Decision Making - Medical Decision Making EKG is interpreted by myself. EKG shows a sinus rhythm at 62 bpm OR interval 237 QRS is 88 QT interval 380 QTC is 385. Patient's EKG shows no ST segment elevation or depression. Was pt. sent in by a medical professional or institution ([facility], SUPPLEMENTAL NURSE, urgent care, hospital, or long term...) When possible be specific @ -No Did you speak to anyone other than the patient for history (EMS, parent, family, police, friend...)? What history was obtained from this source @ -No Did you review nursing and triage notes (agree or disagree)? Why? @ -I reviewed and agree with nursing and triage notes Were old charts reviewed (outside hosp., previous admission, EMS record, old EKG, old radiological studies, urgent care reports/EKG's, long term records)? Report findings @ -I reviewed prior charts from prior lab work on this patient Differential Diagnosis (chest pain, altered mental status, abdominal pain women, abdominal pain men, vaginal bleeding, weakness, fever, dyspnea, syncope, headache, dizziness, GI bleed, back pain, seizure, CVA, palpatations, mental health, musculoskeletal)? @ -Differential Chest Pain: Stable Angina, Unstable Angina, STEMI, NSTEMI Aortic Dissection, Pneumothorax, Musculoskeletal, Esophageal Spasm GERD, Cholecystitis, Pancreatitis, Zoster, this is not meant to be an all-inclusive list. EKG interpreted by me (3pts min.). @ -As above X-rays interpreted by me (1pt min.). @ -None done CT interpreted by me (1pt min.). @ -None done U/S interpreted by me (1pt. min.). @ -None done What testing was considered but not performed or refused? (CT, X-rays, U/S, labs)? Why? @ -None What meds were considered but not given or refused? Why? @ -None Did you discuss the management of the patient with other professionals (professionals i.e. , PA, SUPPLEMENTAL NURSE, lab, RT, psych nurse, hospice social worker, channeler insole, te acher, tax revenue officer, returned case inspector)? Give summary @ -No Was smoking cessation discussed for >3mins.? @ -No Was critical care preformed (if so, how long)? @ -No Were there social determinants of health that impacted care today? How? (Homelessness, low income, unemployed, alcoholism, drug addiction, transportation, low edu. Level, literacy, decrease access to med. care, [place] [facility], rehab)? @ -No Was there de-escalation of care discussed even if they declined (Discuss DNR or withdrawal of care, Hospice)? DNR status @ -No What co-morbidities impacted this encounter? (DM, HTN, Smoking, COPD, CAD, Cancer, CVA, ARF, Chemo, Hep., AIDS, mental health diagnosis, sleep apnea, morbid obesity)? @ -None Was patient admitted / discharged? Hospital course, mention meds given and rou te, prescriptions, significant lab abnormalities, going to OR and other pertinent info. @ -Patient had lab work and x-rays done in the emergency department are all within normal range. Patient also complained of some soreness and redness to her gums that she was post an antibiotic for which she stopped taking it. I told the patient she should stay in the hospital because of her chest pounding and she absolutely refused. Patient was asked 3 times and she refused all 3 times she understands the risk and she'll follow-up with her primary medical care doctor. Undiagnosed new problem with uncertain prognosis? @ -No Drug Therapy requiring intensive monitoring for toxicity (Heparin, Nitro, Insulin, Cardizem)? @ -No Were any procedures done? @ -No Diagnosis/symptom? @ -Chest pain Acute, or Chronic, or Acute on Chronic? @ -Acute Uncomplicated (without systemic symptoms) or Complicated (systemic symptoms)? @ -, Located Side effects of treatment? @ -No Exacerbation, Progression, or Severe Exacerbation? @ -No Poses a threat to life or bodily function? How? (Chest pain, [place], [place], pneumonia, PE, COPD, DKA, ARF, appy, cholecystitis, CVA, Diverticulitis, Homicidal, Suicidal, threat to staff... and all critical care pts) @ -No Diagnosis/symptom? @ -Anxiety Acute, or Chronic, or Acute on Chronic? @ -Acute Uncomplicated (without systemic symptoms) or Complicated (systemic symptoms)? @ -Uncomplicated Side effects of treatment? @ -none Exacerbation, Progression, or Severe Exacerbation] @ -no Poses a threat to life or bodily function? @ -no Diagnosis/symptom? @ -Gingivitis Acute, or Chronic, or Acute on Chronic? @ -Acute Uncomplicated (without systemic symptoms) or Complicated (systemic symptoms)? @ -Uncomplicated Side effects of treatment? @ -none Exacerbation, Progression, or Severe Exacerbation] @ -no Poses a threat to life or bodily function? @ -no - Lab Data Result diagrams: 09/26/23 13:14 09/26/23 13:14 Lab Results 09/26/23 09/26/23 09/26/23 Range/Units 13:14 13:14 13:14 WBC 7.2 (3.8-10.6) k/uL RBC 4.60 (3.80-5.40) m/uL Hgb 15.2 (11.4-16.0) gm/dL Hct 43.5 (34.0-46.0) % MCV 94.6 (80.0-100.0) fL MCH 33.0 (25.0-35.0) pg MCHC 34.9 (31.0-37.0) g/dL RDW 12.1 (11.5-15.5) % Plt Count 186 (150-450) k/uL MPV 9.4 Neutrophils % 71 % Lymphocytes % 16 % Monocytes % 8 % Eosinophils % 2 % Basophils % 0 % Neutrophils # 5.2 (1.3-7.7) k/uL Lymphocytes # 1.2 (1.0-4.8) k/uL Monocytes # 0.6 (0-1.0) k/uL Eosinophils # 0.1 (0-0.7) k/uL Basophils # 0.0 (0-0.2) k/uL PT (10.0-12.5) sec INR (<1.2) APTT (22.0-30.0) sec Sodium 139 (137-145) mmol/L Potassium 5.3 H (3.5-5.1) mmol/L Chloride 104 (98-107) mmol/L Carbon Dioxide 25 (22-30) mmol/L Anion Gap 10 mmol/L BUN 21 H (7-17) mg/dL Creatinine 0.74 (0.52-1.04) mg/dL Est GFR (CKD-EPI)AfAm >90 (>60 ml/min/1.73 sqM) Est GFR (CKD-EPI)NonAf 78 (>60 ml/min/1.73 sqM) Glucose 95 (74-99) mg/dL Calcium 9.9 (8.4-10.2) mg/dL Magnesium 2.1 (1.6-2.3) mg/dL Total Bilirubin 0.7 (0.2-1.3) mg/dL AST 39 H (14-36) U/L ALT 23 (4-34) U/L Alkaline Phosphatase 86 (38-126) U/L Troponin I <0.012 (0.000-0.034) ng/mL Total Protein 7.6 (6.3-8.2) g/dL Albumin 4.5 (3.5-5.0) g/dL TSH 2.790 (0.465-4.680) mIU/L 09/26/23 Range/Units 14:34 WBC (3.8-10.6) k/uL RBC (3.80-5.40) m/uL Hgb (11.4-16.0) gm/dL Hct (34.0-46.0) % MCV (80.0-100.0) fL MCH (25.0-35.0) pg MCHC (31.0-37.0) g/dL RDW (11.5-15.5) % Plt Count (150-450) k/uL MPV Neutrophils % % Lymphocytes % % Monocytes % % Eosinophils % % Basophils % % Neutrophils # (1.3-7.7) k/uL Lymphocytes # (1.0-4.8) k/uL Monocytes # (0-1.0) k/uL Eosinophils # (0-0.7) k/uL Basophils # (0-0.2) k/uL PT 10.3 (10.0-12.5) sec INR 0.9 (<1.2) APTT 21.4 L (22.0-30.0) sec Sodium (137-145) mmol/L Potassium (3.5-5.1) mmol/L Chloride (98-107) mmol/L Carbon Dioxide (22-30) mmol/L Anion Gap mmol/L BUN (7-17) mg/dL Creatinine (0.52-1.04) mg/dL Est GFR (CKD-EPI)AfAm (>60 ml/min/1.73 sqM) Est GFR (CKD-EPI)NonAf (>60 ml/min/1.73 sqM) Glucose (74-99) mg/dL Calcium (8.4-10.2) mg/dL Magnesium (1.6-2.3) mg/dL Total Bilirubin (0.2-1.3) mg/dL AST (14-36) U/L ALT (4-34) U/L Alkaline Phosphatase (38-126) U/L Troponin I (0.000-0.034) ng/mL Total Protein (6.3-8.2) g/dL Albumin (3.5-5.0) g/dL TSH (0.465-4.680) mIU/L Disposition Clinical Impression: Chest pain, Anxiety, Gingivitis Disposition: HOME SELF-CARE Condition: Good Instructions (If sedation given, give patient instructions): Chest Pain (ED), Heart Palpitations (ED), Gingivitis (ED) Additional Instructions: Patient should use chlorhexidine rinse her mouth out Prescriptions: Amoxicillin 500 mg PO Q8H #30 capsule Is patient prescribed a controlled substance at d/c from ED?: No Referrals: Darron Underwood DO [Primary Care Provider] - 1-2 days Time of Disposition: 15:38
--- NOTE | 2023-09-26 13:46 | XR ---
EXAMINATION TYPE: XR chest 2V DATE OF EXAM: 09/26/2023 COMPARISON: 06/04/2023 INDICATION: Dysrhythmia chest pain TECHNIQUE: Frontal and lateral views of the chest are obtained. FINDINGS: The heart size is normal. The pulmonary vasculature is normal. The lungs are clear. IMPRESSION: 1. No acute pulmonary process.
[2023-09-26 13:48] LABS: Basophils % (A) 0 %; Eosinophils # (A) 0.1 k/uL (0-0.7); Eosinophils % (A) 2 %; HCT 43.5 % (34.0-46.0); HGB 15.2 gm/dL (11.4-16.0); Lymphocytes # (A) 1.2 k/uL (1.0-4.8); Lymphocytes % (A) 16 %; MCHC 34.9 g/dL (31.0-37.0); MCV 94.6 fL (80.0-100.0); Mean Platelet Volume 9.4; Monocytes # (A) 0.6 k/uL (0-1.0); Monocytes % (A) 8 %; Neutrophils # (A) 5.2 k/uL (1.3-7.7); Neutrophils % (A) 71 %; Platelet Count 186 k/uL (150-450); RDW 12.1 % (11.5-15.5); WBC 7.2 k/uL (3.8-10.6)
[2023-09-26 14:01] LABS: ALT 23 U/L (4-34); AST 39 U/L (14-36); African American GFR (CKD) >90 (>60 ml/min/1.73 sqM); Albumin 4.5 g/dL (3.5-5.0); Alkaline Phosphatase 86 U/L (38-126); Anion Gap 10 mmol/L; Blood Urea Nitrogen 21 mg/dL (7-17); Calcium 9.9 mg/dL (8.4-10.2); Carbon Dioxide 25 mmol/L (22-30); Chloride 104 mmol/L (98-107); Glucose 95 mg/dL (74-99); Magnesium 2.1 mg/dL (1.6-2.3); Non-African American GFR(CKD) 78 (>60 ml/min/1.73 sqM); Sodium 139 mmol/L (137-145); Total Bilirubin 0.7 mg/dL (0.2-1.3); Total Protein 7.6 g/dL (6.3-8.2)
[2023-09-26 14:11] LABS: Potassium 5.3 mmol/L (3.5-5.1)
[2023-09-26 14:59] LABS: INR 0.9 (<1.2); Prothrombin Time 10.3 sec (10.0-12.5)
[2023-09-26 15:02] LABS: Partial Thromboplastin Time 21.4 sec (22.0-30.0)
[2023-09-26 15:40] VITALS: BP 153/81; PULSE 70; RESP 18
== END 2023-09-26 15:54 | disposition home or self-care (01) ==
LOC: EC 12:33
DX: F41.9 Anxiety disorder, unspecified (principal); K05.10 Chronic gingivitis, plaque induced; R07.89 Other chest pain; E78.5 Hyperlipidemia, unspecified; Z79.899 Other long term (current) drug therapy; Z90.49 Acquired absence of other specified parts of digestive tract; Z88.1 Allergy status to other antibiotic agents; Z88.2 Allergy status to sulfonamides; Z88.5 Allergy status to narcotic agent; Z88.8 Allergy status to other drugs, medicaments and biological substances; Z87.891 Personal history of nicotine dependence
CPT/HCPCS: 36415; 71046; 80053; 83735; 84443; 84484; 85025; 85610; 85730; 93005; 99285

== ENCOUNTER → 2023-10-19 | Outpatient (CLI) | payer MEDICARE ==
--- NOTE | 2023-10-19 10:15 | US ---
EXAMINATION TYPE: US thyroid st tissue head/neck DATE OF EXAM: 10/19/2023 COMPARISON: 09/11/23 CLINICAL INDICATION: Female, 78 years old with history of E04.1 THYROID NODULE; thyroid nodule GLAND SIZE: Right Lobe: 4.0x1.4x1.3 cm Overall Parenchyma: homogeneous Left Lobe: 4.0x2.0x1.7 cm Overall Parenchyma: homogeneous Isthmus Thickness: 0.3 cm NODULES RIGHT: # of nodules measured on right: 1 1. 0.8 X 0.5 x 0.7 cm, upper lateral, Prior size: 0.8 x 0.5 x 0.7 cm TIRADS Score: 4 TIRADS Category 4: Composition: Solid or almost completely solid (2 points). Echogenicity: Hypoechoic (2 points). Shape: Wider than tall (0 points). Margin: Smooth (0 points). Echogenic foci: None or large comet-tail artifacts (0 points) Recommendation: If >1.5cm: FNA; If >1cm: Follow up at 1,2, 3,5 years LEFT: # of nodules measured on left: 3 1. 1.8 X 1.4 x 1.5 cm, mid mid, Prior size: 1.5 x 1.2 x 1.2 cm TIRADS Score: 3 TIRADS Category 3: Composition: Solid or almost completely solid (2 points). Echogenicity: Hyperechoic or isoechoic (1 point). Shape: Wider than tall (0 points). Margin: Smooth (0 points). Echogenic foci: None or large comet-tail artifacts (0 points) Recommendation: If >2.5cm: FNA; If >1.5cm: Follow up at 1,3,5 years 2. 0.6 X 0.4 x 0.5 cm, upper medial, Prior size: 0.6 x 0.5 x 0.5 cm TIRADS Score: 3 TIRADS Category 3: Composition: Mixed cystic and solid (1 point). Echogenicity: Hypoechoic (2 points). Shape: Wider than tall (0 points). Margin: Smooth (0 points). Echogenic foci: None or large comet-tail artifacts (0 points) Recommendation: If >2.5cm: FNA; If >1.5cm: Follow up at 1,3,5 years 3. 0.8 X 0.8 x 0.9 cm, lower lateral, Prior size: 0.5 x 0.5 x 0.5 cm Heterogenous lower thyroid made correlation of this nodule difficult TIRADS Score: 3 TIRADS Category 3: Composition: Mixed cystic and solid (1 point). Echogenicity: Hypoechoic (2 points). Shape: Wider than tall (0 points). Margin: Smooth (0 points). Echogenic foci: None or large comet-tail artifacts (0 points) Recommendation: If >2.5cm: FNA; If >1.5cm: Follow up at 1,3,5 years ISTHMUS: # of nodules measured in the isthmus: 0 Bilateral neck scanned, no evidence of lymphadenopathy. IMPRESSION: Bilateral thyroid nodules which meet criteria for follow-up.
== END | disposition home or self-care (01) ==
LOC: RADUSWWP 09:31
PROVIDERS: ATTEND Otolaryngology
DX: E04.2 Nontoxic multinodular goiter (principal)
CPT/HCPCS: 76536

== ENCOUNTER → 2023-10-28 | Outpatient (CLI) | payer MEDICARE | END | disposition home or self-care (01) | LOC: LABWHC1 15:26 | PROVIDERS: ATTEND Otolaryngology | DX: E04.1 Nontoxic single thyroid nodule (principal); R53.83 Other fatigue | CPT/HCPCS: 36415; 84439; 84443; 86376 ==

== ENCOUNTER → 2023-12-12 | Day surgery (SDC) | payer MEDICARE ==
[~2023-12-12] MED LIST changes: -DEXAMETHASONE SOD PHOSPHATE 10 MG/ML 1 ML VIAL IV ONE; -HEPARIN SODIUM,PORCINE 5,000 UNIT/ML 1 ML VIAL SQ ONE; -LACTATED RINGERS 1,000 ML IV SCH; -MIDAZOLAM 2 MG/2 ML VIAL IV PRN; -ONDANSETRON 4 MG/2 ML VIAL IVP ONE; +SODIUM CHLORIDE 0.9% 1,000 ML IV SCH; +SODIUM CHLORIDE 0.9% 500 ML 500 ML IV ONE; -ceFAZolin IN SWFI 2 GM/20 ML SYRINGE IVP ONE
[2023-12-12 09:45] VITALS: BP 132/72; PULSE 67; RESP 16; TEMP 97.6
--- NOTE | 2023-12-13 17:11 | P.EPPROC ---
- EP Procedure Note Electrophysiology Procedure Note: Diagnosis Recurrent presyncope Twelve-lead EKG shows sinus rhythm with a normal NM narrow QRS normal ST segments and PVCs possibly from the aorto-mitral continuity Tilt table test Baseline blood pressure 146/67 mmHg, pulse rate 62 beats a minute Patient was tilted upright in angle of 70 degrees per protocol. There was a gradual progressive decline in her blood pressure over the next 30 minutes or so. Lowest blood pressure recorded was 83/49 mmHg. She felt very dizzy and felt as if she was going to pass out. When she was laid supine her blood pressure normalized to 123/69 mmHg There was no significant change in her heart rate from baseline at any point in time Impression Normal twelve-lead EKG with PVCs Orthostatic hypotension syndrome Near syncope at a blood pressure of 83/49 mmHg
== END ==
LOC: CATHEP 08:53
PROVIDERS: ATTEND Internal Medicine Clinical Cardiac Electrophysiology
DX: R55 Syncope and collapse (principal); F17.210 Nicotine dependence, cigarettes, uncomplicated; Z79.899 Other long term (current) drug therapy
CPT/HCPCS: 93660

== ENCOUNTER → 2024-10-23 | Outpatient (CLI) | payer MEDICARE ==
--- NOTE | 2024-10-24 11:42 | MM ---
Reason for Exam: Screening (asymptomatic). Last mammogram was performed 2 year(s) and 0 month(s) ago. Patient History: Menarche at age 14. First Full-Term at age 20. Postmenopausal. Estrogen for 8 years, 9 months. Progesterone for 8 years, 9 months. Cyst Aspiration on the Right side. Cyst Aspiration on the Right side. Core Biopsy on the Right side. Cyst Aspiration on the Left side. Cyst Aspiration on the Left side. Excisional Biopsy on the Right side. Excisional Biopsy on the Left side. 07/12/2003, Benign Stereotactic Core Biopsy on the right side. Sister had breast cancer. Mother had breast cancer. Risk Values: Annie 5 year model risk: 9.2%. NCI Lifetime model risk: 14.9%. Prior Study Comparison: 12/27/2016 Screening Mammogram, [place]. 04/10/2019 Bilateral Screening Mammogram, [facility]. 11/11/2022 Bilateral MG 3D screening mammo w/cad, [facility]. Tissue Density: The breasts are almost entirely fatty. Findings: Analyzed By CAD. Right breast: There is no suspicious group of microcalcifications or new suspicious mass. Left breast: There is no suspicious group of microcalcifications or new suspicious mass. Benign-appearing calcifications left breast. Overall Assessment: Benign, BI-RAD 2 Management: Screening Mammogram of both breasts in [address] [facility] will attempt to contact patient to return for supplemental views and ultrasound if indicated. Patient should continue monthly self-breast exams. A clinical breast exam by your physician is recommended on an annual basis. This exam should not preclude additional follow-up of suspicious palpable abnormalities. Note on Annie scores and lifetime risk: 1. A Annie score greater than 3% is considered moderate risk. If this is the case, consider specialist referral to assess eligibility for a risk reducing agent. 2. If overall lifetime risk for the development of breast cancer is 20% or higher, the patient may qualify for future screening with alternating mammogram and breast MRI. [facility], , 10/24/2024 11:38 AM. Electronically signed and approved by: Pravin Rae DO
== END | disposition home or self-care (01) ==
LOC: RADMAMWWP 09:26
PROVIDERS: ATTEND Family Medicine
DX: Z12.31 Encounter for screening mammogram for malignant neoplasm of breast (principal); Z78.0 Asymptomatic menopausal state; Z80.3 Family history of malignant neoplasm of breast
CPT/HCPCS: 77063; 77067

== ENCOUNTER → 2025-02-26 | Outpatient (CLI) | payer MEDICARE ==
--- NOTE | 2025-02-26 15:22 | XR ---
EXAMINATION TYPE: XR knee complete RT DATE OF EXAM: 02/26/2025 CLINICAL INDICATION: Female, 79 years old with history of [id number] RT KNEE PAIN, pain TECHNIQUE: 3 views of the knee were obtained. COMPARISON: None. FINDINGS: There is no acute fracture/dislocation evident in right knee. [id number] joint space loss and spurring in the medial tibiofemoral and patellofemoral compartments. The overlying soft tis ching appears unremarkable. IMPRESSION: As above. [facility], , 02/26/2025 3:20 PM
== END | disposition home or self-care (01) ==
LOC: RADXRYALE 14:59
PROVIDERS: ATTEND Family Medicine
DX: M25.761 Osteophyte, right knee (principal); M25.561 Pain in right knee

== ENCOUNTER → 2025-02-27 | Outpatient (CLI) | payer MEDICARE ==
--- NOTE | 2025-02-27 14:16 | BD ---
EXAMINATION TYPE: Axial Bone Density DATE OF EXAM: 02/27/2025 CLINICAL HISTORY: 79 years old Female. ICD-10 CODE: M8580 DIS OF BONE DENS M069 RA , Additional Hist ory: Height: 64.2 Weight: 177 FRAX RISK QUESTIONS: Family History (Parent hip fracture): yes, mother Glucocorticoids (More than 3mos): yes (Ex: prednisone, prednisolone, methylprednisolone, dexamethasone, and hydrocortisone). History of Fracture in Adulthood: yes 3. Menopause before 45: no at 49 Rheumatoid Arthritis: yes RISK FACTORS HISTORY OF: height loss, asthma, RA, lymphoma, hx broken ribs as adult, Surgery to Spine.....spinal fusion w/hardware, 2013 MEDICATIONS: hx of chemo, prednisone, vit d, EXAM MEASUREMENTS: Bone mineral densitometry was performed using the [employer] System. spinal fusion with hardware Bone mineral density about the R hip (g/cm2): 1.070 Bone mineral density about the L hip (g/cm2): 1.168 T Score values are as follows: -----R Neck: 1.0 -----L Neck: 1.6 -----R Total: 0.5 -----L Total: 1.3 Z Score values are as follows: -----R Neck: 2.8 -----L Neck: 3.4 -----R Total: 2.1 -----L Total: 2.9 Bone mineral density has: Increased 3.5% since study of: 11.11.2022 Bone mineral density about the L Wrist (g/cm2): 0.486 T Score values are as follows: -----Dist. R+U: -2.6 -----Prox. R+U: -1.4 -----Radius total: -2.6 Z Score values are as follows: -----Dist. R+U: 0.1 -----Prox. R+U: 1.3 -----Radius total: 0.1 Bone mineral density has: Increased 3.7% since study of: 11.11.2022 FRAX%s: The graph provided illustrates a 19.0% chance for a major osteoporotic fx and a 1.6% chance f or the hips probability for fx in 10 years time. IMPRESSION: Osteopenia (T Score between -2.5 and -1). There is slightly increased risk of fracture and the patient may be considered for treatment. Re-Screen 2-5 years. NOTE: T-SCORE=SD OF THE YOUNG ADULT MEAN. [facility], , 02/27/2025 2:14 PM
== END | disposition home or self-care (01) ==
LOC: RADBDWWP 12:17
PROVIDERS: ATTEND Family Medicine
DX: M81.0 Age-related osteoporosis without current pathological fracture (principal); M85.851 Other specified disorders of bone density and structure, right thigh; M06.9 Rheumatoid arthritis, unspecified
CPT/HCPCS: 77080

== ENCOUNTER → 2025-04-04 | Outpatient (CLI) | payer MEDICARE ==
--- NOTE | 2025-04-05 11:06 | MR ---
EXAMINATION TYPE: MR knee RT wo con DATE OF EXAM: 04/04/2025 COMPARISON: Right knee x-ray February 26, 2025 HISTORY: Right knee pain. Internal derangement. TECHNIQUE: Multiplanar, multisequence images of the knee is performed without IV contrast. FINDINGS: MEDIAL MENISCUS: Medial extrusion medial meniscus with a emaciated appearance having abnormal signal in the posterior horn and body extending to articular surface. LATERAL MENISCUS: Anterior and posterior horns are intact without tear. CRUCIATE LIGAMENTS: The posterior cruciate ligament is intact and unremarkable. Marked increased sign al in the anterior cruciate ligament with disruption of the proximal fibers. COLLATERAL LIGAMENTS: The medial collateral ligament and lateral collateral ligament complex are inta ct. Heterogeneous increased signal and thickening of the lateral collateral ligament. Significant flu id surrounding the medial collateral ligament. EXTENSOR MECHANISM: Visualized quadriceps and patellar tendons are intact. Some increased signal dist al quadriceps tendon and proximal patellar tendon. EFFUSION: Small to moderate size suprapatellar joint effusion. POPLITEAL CYST: Large septated popliteal/torres cyst with ill-defined fluid inferiorly suggesting leak . TRICOMPARTMENT SPACES: Moderate to severe narrowing with moderate spurring medial tibial femoral comp artment. Moderate narrowing and spurring lateral tibiofemoral compartment. Mild to moderate narrowing and mild spurring patellofemoral compartment. CARTILAGE: Full-thickness cartilaginous loss healed tibial femoral compartment. BONE MARROW SIGNAL: Areas of heterogeneous diminished T1 and increased T2 signal distal medial femora l condyle and medial tibial plateau with tiny subchondral cystic change laterally. OTHER: No additional significant abnormality is appreciated. IMPRESSION: 1. 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 Advanced findings noted medial tibiofemoral compartment. 2. Emaciated full thickness tear of the posterior horn into the central body of the medial meniscus. 3. Moderate to severe MCL sprain injury. 4. Complete ACL tear. 5. Mild tendinosis distal quadriceps tendon and proximal patellar tendons. Mild chronic sprain injury proximal LCL. 6. Small to moderate size suprapatellar joint effusion. 7. Large leaking multi septated popliteal cyst. [facility], Workstation: 3, 04/05/2025 11:04 AM
== END | disposition home or self-care (01) ==
LOC: RADMRIMAIN 18:30
PROVIDERS: ATTEND Family Medicine
DX: S83.241A Other tear of medial meniscus, current injury, right knee, initial encounter (principal); S83.511A Sprain of anterior cruciate ligament of right knee, initial encounter; M23.91 Unspecified internal derangement of right knee; M17.11 Unilateral primary osteoarthritis, right knee; M71.21 Synovial cyst of popliteal space [Baker], right knee; X58.XXXA Exposure to other specified factors, initial encounter